=== PATIENT | male | born 1940 | race Caucasian/White ===

== ENCOUNTER 2018-02-24 11:09 | Observation (INO) | payer MEDICARE, BC ==
[2018-02-24] MEDS ORDERED: ASPIRIN 81 MG PO STA (11:47)
[2018-02-24] MEDS ORDERED: NITROGLYCERIN OINT 1 INCH/GM PACKET TOPICAL STA (11:47)
--- NOTE | 2018-02-24 12:01 | ED ---
General Adult HPI - General Chief complaint: Chest Pain Stated complaint: chest pain Time Seen by Provider: 02/24/18 11:15 Source: patient, RN notes reviewed Mode of arrival: wheelchair Limitations: no limitations - History of Present Illness Initial comments: Is a 77-year-old male with a past medical history significant for 2 MIs. Patient also has a history of hypertension high cholesterol. Patient comes in today because he started having chest pain on the right side of his chest yesterday she described as sharp in nature and also he has associated shortness of breath. Patient states been intermittent since yesterday and again occurred this morning and still concerning psychiatric emergency department. Patient denies any radiation of the pain. Patient denies any diaphoretic episodes. Patient denies any nausea. Patient states he's had no recent fever chills or cough per patient denies any headache patient denies numbness weakness. Patient denies any lightheadedness dizziness or near syncopal episode. Patient denies any vomiting or diarrhea. Patient states currently the pain is still there but it's only there a little bit. Patient states taking a deep breath does seem to make it worse or other times it does not. Patient denies exerting himself he doesn't know if exertion is made worse. - Related Data Home Medications Medication Instructions Recorded Confirmed Allopurinol [Zyloprim] 300 mg PO DAILY 01/29/15 02/24/18 Aspirin 325 mg PO DAILY 01/29/15 02/24/18 Atorvastatin [Lipitor] 40 mg PO HS 01/29/1518 Lisinopril [Zestril] 20 mg PO DAILY 01/29/15 02/24/18 Metoprolol Tartrate [Lopressor] 25 mg PO BID 01/29/15 02/24/18 Timolol [Betimol 0.5% Ophth Soln] 1 drop BOTH EYES DAILY 01/29/15 02/24/18 amLODIPine [Norvasc] 5 mg PO DAILY 01/29/15 02/24/18 Allergies Allergy/AdvReac Type Severity Reaction Status Date / Time No Known Allergies Allergy Verified 02/24/18 13:18 Review of Systems ROS Statement: Those systems with pertinent positive or pertinent negative responses have been documented in the HPI. ROS Other: All systems not noted in ROS Statement are negative. Past Medical History Past Medical History: Coronary Artery Disease (CAD), Hyperlipidemia, Hypertension, Myocardial Infarction ([place]) Additional Past Medical History / Comment(s): mi x2 History of Any Multi-Drug Resistant Organisms: None Reported Past Surgical History: Heart Catheterization, Heart Catheterization With Stent, Orthopedic Surgery Past Psychological History: No Psychological Hx Reported Smoking Status: Former smoker Past Alcohol Use History: Rare Past Drug Use History: None Reported General Exam - General Exam Comments Initial Comments: GENERAL: Patient is well-developed and well-nourished. Patient is nontoxic and well- hydrated and is in mild distress. ENT: Neck is soft and supple. No significant lymphadenopathy is noted. Oropharynx is clear. Moist mucous membranes. Neck has full range of motion without eliciting any pain. EYES: The sclera were anicteric and conjunctiva were pink and moist. Extraocular movements were intact and pupils were equal round and reactive to light. Eyelids were unremarkable. PULMONARY: Unlabored respirations. Good breath sounds bilaterally. No audible rales rhonchi or wheezing was noted. CARDIOVASCULAR: There is a regular rate and rhythm without any murmurs gallops or rubs. ABDOMEN: Soft and nontender with normal bowel sounds. No palpable organomegaly was noted. There is no palpable pulsatile mass. SKIN: Skin is clear with no lesions or rashes and otherwise unremarkable. NEUROLOGIC: Patient is alert and oriented x3. Cranial nerves II through XII are grossly intact. Motor and sensory are also intact. Normal speech, volume and content. Symmetrical smile. MUSCULOSKELETAL: Normal extremities with adequate strength and full range of motion. No lower extremity swelling or edema. No calf tenderness. LYMPHATICS: No significant lymphadenopathy is noted PSYCHIATRIC: Normal psychiatric evaluation. Limitations: no limitations Course Vital Signs 02/24/18 02/24/18 11:17 12:08 Temperature 98.1 F Pulse Rate 63 63 Respiratory 20 18 Rate Blood Pressure 164/66 130/63 O2 Sat by Pulse 98 96 Oximetry Medical Decision Making - Medical Decision Making EKG shows sinus rhythm with a first-degree AV block at 62 bpm VA interval 212 QRS is 98 QT interval 432 QTC is 438. Patient's EKG shows no ST segment elevation or depression or T wave abnormalities are noted. Chest x-ray shows no acute abnormality. D-dimer was elevated so I ordered a CAT scan of the chest. CT of the chest showed no PE. Because the patient was having atypical chest pain I consider this to be unstable angina started the patient on heparin I admitted the patient I spoke with Dr. Ledesma and a consult cardiology. I continue the heparin aspirin Nitropaste on the floor. - Lab Data Result diagrams: 02/24/18 11:54 02/24/18 11:54 Lab Results 02/24/18 02/24/18 02/24/18 Range/Units 11:54 11:54 11:54 WBC 4.4 (3.8-10.6) k/uL RBC 4.21 L (4.30-5.90) m/uL Hgb 13.2 (13.0-17.5) gm/dL Hct 40.6 (39.0-53.0) % MCV 96.3 (80.0-100.0) fL MCH 31.4 (25.0-35.0) pg MCHC 32.6 (31.0-37.0) g/dL RDW 13.3 (11.5-15.5) % Plt Count 160 (150-450) k/uL Neutrophils % 77 % Lymphocytes % 9 % Monocytes % 9 % Eosinophils % 1 % Basophils % 0 % Neutrophils # 3.4 (1.3-7.7) k/uL Lymphocytes # 0.4 L (1.0-4.8) k/uL Monocytes # 0.4 (0-1.0) k/uL Eosinophils # 0.1 (0-0.7) k/uL Basophils # 0.0 (0-0.2) k/uL PT (9.0-12.0) sec INR (<1.2) APTT (22.0-30.0) sec D-Dimer (<0.60) mg/L FEU Sodium 140 (137-145) mmol/L Potassium 4.1 (3.5-5.1) mmol/L Chloride 107 (98-107) mmol/L Carbon Dioxide 24 (22-30) mmol/L Anion Gap 9 mmol/L BUN 24 H (9-20) mg/dL Creatinine 0.79 (0.66-1.25) mg/dL Est GFR (CKD-EPI)AfAm >90 (>60 ml/min/1.73 sqM) Est GFR (CKD-EPI)NonAf 86 (>60 ml/min/1.73 sqM) Glucose 94 (74-99) mg/dL Calcium 8.8 (8.4-10.2) mg/dL Magnesium 2.1 (1.6-2.3) mg/dL Total Bilirubin 0.8 (0.2-1.3) mg/dL AST 25 (17-59) U/L ALT 23 (21-72) U/L Alkaline Phosphatase 57 (38-126) U/L Total Creatine Kinase 112 (55-170) U/L CK-MB (CK-2) 3.2 H (0.0-2.4) ng/mL CK-MB (CK-2) Rel Index 2.9 Troponin I <0.012 (0.000-0.034) ng/mL NT-Pro-B Natriuret Pep pg/mL Total Protein 6.1 L (6.3-8.2) g/dL Albumin 3.5 (3.5-5.0) g/dL 02/24/18 02/24/18 Range/Units 11:54 11:54 WBC (3.8-10.6) k/uL RBC (4.30-5.90) m/uL Hgb (13.0-17.5) gm/dL Hct (39.0-53.0) % MCV (80.0-100.0) fL MCH (25.0-35.0) pg MCHC (31.0-37.0) g/dL RDW (11.5-15.5) % Plt Count (150-450) k/uL Neutrophils % % Lymphocytes % % Monocytes % % Eosinophils % % Basophils % % Neutrophils # (1.3-7.7) k/uL Lymphocytes # (1.0-4.8) k/uL Monocytes # (0-1.0) k/uL Eosinophils # (0-0.7) k/uL Basophils # (0-0.2) k/uL PT 11.0 (9.0-12.0) sec INR 1.0 (<1.2) APTT 25.9 (22.0-30.0) sec D-Dimer 1.19 H (<0.60) mg/L FEU Sodium (137-145) mmol/L Potassium (3.5-5.1) mmol/L Chloride (98-107) mmol/L Carbon Dioxide (22-30) mmol/L Anion Gap mmol/L BUN (9-20) mg/dL Creatinine (0.66-1.25) mg/dL Est GFR (CKD-EPI)AfAm (>60 ml/min/1.73 sqM) Est GFR (CKD-EPI)NonAf (>60 ml/min/1.73 sqM) Glucose (74-99) mg/dL Calcium (8.4-10.2) mg/dL Magnesium (1.6-2.3) mg/dL Total Bilirubin (0.2-1.3) mg/dL AST (17-59) U/L ALT (21-72) U/L Alkaline Phosphatase (38-126) U/L Total Creatine Kinase (55-170) U/L CK-MB (CK-2) (0.0-2.4) ng/mL CK-MB (CK-2) Rel Index Troponin I (0.000-0.034) ng/mL NT-Pro-B Natriuret Pep 614 pg/mL Total Protein (6.3-8.2) g/dL Albumin (3.5-5.0) g/dL Critical Care Time Critical Care Time: Yes Total Critical Care Time: 35 Disposition Clinical Impression: Unstable angina pectoris Disposition: ADMITTED IP TO THIS [facility] Referrals: Nonstaff,Physician [Primary Care Provider] - 1-2 days Time of Disposition: 14:35
[2018-02-24 12:15] LABS: Basophils % (A) 0 %; Eosinophils # (A) 0.1 k/uL (0-0.7); Eosinophils % (A) 1 %; HCT 40.6 % (39.0-53.0); HGB 13.2 gm/dL (13.0-17.5); Lymphocytes # (A) 0.4 k/uL (1.0-4.8); Lymphocytes % (A) 9 %; MCH 31.4 pg (25.0-35.0); MCHC 32.6 g/dL (31.0-37.0); MCV 96.3 fL (80.0-100.0); Mean Platelet Volume 7.5; Monocytes # (A) 0.4 k/uL (0-1.0); Monocytes % (A) 9 %; Neutrophils # (A) 3.4 k/uL (1.3-7.7); Neutrophils % (A) 77 %; Platelet Count 160 k/uL (150-450); RBC 4.21 m/uL (4.30-5.90); RDW 13.3 % (11.5-15.5); WBC 4.4 k/uL (3.8-10.6)
[2018-02-24 12:25] LABS: ALT 23 U/L (21-72); AST 25 U/L (17-59); Albumin 3.5 g/dL (3.5-5.0); Alkaline Phosphatase 57 U/L (38-126); Anion Gap 9 mmol/L; Blood Urea Nitrogen 24 mg/dL (9-20); Calcium 8.8 mg/dL (8.4-10.2); Carbon Dioxide 24 mmol/L (22-30); Chloride 107 mmol/L (98-107); Glucose 94 mg/dL (74-99); Magnesium 2.1 mg/dL (1.6-2.3); Potassium 4.1 mmol/L (3.5-5.1); Sodium 140 mmol/L (137-145); Total Bilirubin 0.8 mg/dL (0.2-1.3); Total Protein 6.1 g/dL (6.3-8.2)
--- NOTE | 2018-02-24 12:25 | XR ---
EXAMINATION TYPE: XR chest 2V DATE OF EXAM: 02/24/2018 COMPARISON: None INDICATION: History of 2 heart attacks right-sided chest pain TECHNIQUE: Frontal and lateral views of the chest are obtained. FINDINGS: The heart size is normal. The pulmonary vasculature is upper limits of normal.. There may be some mild increased central lung markings. Minimal bilateral pleural effusions are prese nt. Mild emphysematous changes may be present.. IMPRESSION: 1. Small bilateral pleural effusions. 2. Emphysematous type changes. 3. Consider volume overload within the differential.
[2018-02-24 12:29] LABS: Partial Thromboplastin Time 25.9 sec (22.0-30.0)
[2018-02-24 12:44] LABS: Creatine Kinase 112 U/L (55-170)
[2018-02-24 12:56] LABS: Creatine Kinase MB 3.2 ng/mL (0.0-2.4); Troponin I <0.012 ng/mL (0.000-0.034)
[2018-02-24 13:04] LABS: D-Dimer 1.19 mg/L FEU (<0.60)
--- NOTE | 2018-02-24 14:31 | CT ---
CT CHEST FOR PULMONARY EMBOLISM. EXAMINATION TYPE: CT chest angio for PE DATE OF EXAM: 02/24/2018 INDICATION: Chest pain CT DLP: 270.1 mGycm, Automated exposure control for dose reduction was used. CONTRAST: Patient injected with 100 ml mL of Isovue 370. COMPARISON: None TECHNIQUE: CT of the chest is performed on a spiral scan at 2 mm thick sections. Study is performed with intravenous contrast timed for evaluation for pulmonary embolism. This will limit additional po rtions of the evaluation. 3-D MIP images reconstructed by the technologist are reviewed on the compu ter in the coronal and sagittal planes. FINDINGS: No persistent filling defects are evident to suggest an acute pulmonary embolism. Small bilateral pleural effusions are present. No mediastinal or hilar adenopathy enlarged by CT criteria is evident. Small shotty lymph nodes are present. The ascending aorta diameter at the level of the main pulmonary artery is 3.1 cm. The main pulmonary artery diameter at the bifurcation is 2.3 cm. Emphysematous changes are present bilaterally. There is a 0.5 cm nodular density within the periphery of the right mid lung adjacent to the major fissure. Limited CT section through the upper abdomen are unremarkable. IMPRESSIONS: 1. No acute pulmonary embolism. 2. Emphysematous changes. 3. 0.5 cm nodular density peripherally right midlung. Follow-up monitoring for stability is recommend ed. 4. Small bilateral pleural effusions.
[2018-02-24] MEDS ORDERED: NITROGLYCERIN SL TABS 0.4 MG TAB SUBLINGUAL PRN (14:36)
[2018-02-24] MEDS ORDERED: MORPHINE SULFATE 4 MG/ML SYRINGE IV PRN (15:31)
[2018-02-24] MEDS ORDERED: NALOXONE 0.4 MG/ML 1 ML VIAL IV PRN (15:31)
[2018-02-24] MEDS ORDERED: HYDROcodone/APAP 5-325MG 1 EACH TAB PO PRN (15:31)
[2018-02-24] MEDS ORDERED: ACETAMINOPHEN TAB 325 MG TAB PO PRN (15:31)
[2018-02-24] MEDS ORDERED: MORPHINE SULFATE 2 MG/ML SYRINGE IV PRN (15:37)
--- NOTE | 2018-02-24 16:11 | P.HPIM ---
History of Present Illness H&P Date: 02/24/18 Chief Complaint: chest pain 77-year-old male with PMH of hypertension, hyperlipidemia, previous ID 2, gout presents the ED for chest pain. Patient states he woke up yesterday morning with chest pain that lasted 3-4 hours. Chest pain resolved on its own. C hest is associated with shortness of breath. Patient describes chest pain is right-sided, 8 out of 10 in severity. He is unable to describe it effectively. Pain is nonradiating. Pain has no alleviating factors. Pain is aggravated with deep inspiration. 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 Lobo. Patient states that this chest pain is completely different than the one he experienced during his myocardial infarctions. This morning, he woke up a similar pain, prompting him to go to the ED. He denies any headaches, lower extremity edema, nausea, vomiting, fever, cough, palpitations, changes in urination or bowel habits. No changes in appetite or weight. Patient is admitted for chest pain, rule out acute coronary syndrome. Cardiology on consult. Past Medical History Past Medical History: Coronary Artery Disease (CAD), Hyperlipidemia, Hypertension, Myocardial Infarction (ID) Additional Past Medical History / Comment(s): mi x2 History of Any Multi-Drug Resistant Organisms: None Reported Past Surgical History: Heart Catheterization, Heart Catheterization With Stent, Orthopedic Surgery Past Psychological History: No Psychological Hx Reported Smoking Status: Former smoker Past Alcohol Use History: Rare Past Drug Use History: None Reported Medications and Allergies Home Medications Medication Instructions Recorded Confirmed Type Allopurinol [Zyloprim] 300 mg PO DAILY 01/29/15 02/24/18 History Aspirin 325 mg PO DAILY 01/29/15 02/24/18 History Atorvastatin [Lipitor] 40 mg PO HS 01/29/15 02/24/18 History Lisinopril [Zestril] 20 mg PO DAILY 01/29/15 02/24/18 History Metoprolol Tartrate [Lopressor] 25 mg PO BID 01/29/15 02/24/18 History Timolol [Betimol 0.5% Ophth Soln] 1 drop BOTH EYES DAILY 01/29/15 02/24/18 History amLODIPine [Norvasc] 5 mg PO DAILY 01/29/15 02/24/18 History Allergies Allergy/AdvReac Type Severity Reaction Status Date / Time No Known Allergies Allergy Verified 02/24/18 13:18 Physical Exam Vitals: Vital Signs Temp Pulse Resp BP Pulse Ox 02/24/18 15:15 58 L 18 126/62 97 02/24/18 12:08 63 18 130/63 96 02/24/18 11:17 98.1 F 63 20 164/66 98 Intake and Output 02/24/18 02/24/18 02/24/18 06:59 14:59 22:59 Other: Weight 78.018 kg General: [non toxic], [no distress], [appears at stated age] Derm: [warm], [dry] Head: [atraumatic], [normocephalic], [symmetric] Eyes: [EOMI], [no lid lag], [anicteric sclera] Mouth: [no lip lesion], [mucus membranes moist] Cardiovascular: [S1S2 reg], [no murmur], [positive DP pulse bilateral] Lungs: [CTA bilateral], [no rhonchi, no rales] , [no accessory muscle use] Abdominal: [soft], [ nontender to palpation], [no guarding], [no appreciable organomegaly] Ext: [no gross muscle atrophy], [no edema], [no contractures] Neuro: [ CN II-XI grossly intact], [no focal neuro deficits] Psych: [Alert], [oriented], [appropriate affect] Results CBC & Chem 7: 02/24/18 11:54 02/24/18 11:54 Labs: Abnormal Lab Results - Last 24 Hours (Table) 02/24/18 02/24/18 02/24/18 Range/Units 11:54 11:54 11:54 RBC 4.21 L (4.30-5.90) m/uL Lymphocytes # 0.4 L (1.0-4.8) k/uL D-Dimer (<0.60) mg/L FEU BUN 24 H (9-20) mg/dL CK-MB (CK-2) 3.2 H (0.0-2.4) ng/mL Total Protein 6.1 L (6.3-8.2) g/dL 02/24/18 Range/Units 11:54 RBC (4.30-5.90) m/uL Lymphocytes # (1.0-4.8) k/uL D-Dimer 1.19 H (<0.60) mg/L FEU BUN (9-20) mg/dL CK-MB (CK-2) (0.0-2.4) ng/mL Total Protein (6.3-8.2) g/dL Thrombosis Risk Factor Assmnt - Choose All That Apply Any of the Below Risk Factors Present?: No Other Risk Factors: No Each Risk Factor Represents 3 Points: Age 75 years or older Thrombosis Risk Factor Assessment Total Risk Factor Score: 3 Thrombosis Risk Factor Assessment Level: Very Low Risk Assessment and Plan Assessment: Assessment and Plan 1. Chest pain: Likely non cardiac but with risk factors, rule out ACS. Trop < 0.012 x 1, EKG showing NSR with 1st degree AV block. CXR shows small pleural effusions and emphysema. D-Dimer 1.19, CTA rule out PE. Pain management with Tylenol, Verner, Nitrostat and Morphine IV PRN. Telemetry monitoring. Trend 2 Trop/EKG to r/o ACS. HEART healthy diet. FU Echocardiogram, Lipid panel, Cardiology 2. CAD: Stable. s/p 2 ROMY in 1994 and 1998. Continue ASA 325 mg PO QD and Lipitor 40 mg PO QHS. Continue Metoprolol 25 mg PO BID. FU Cardiology. 3. Hypertension: BP 126/62. Continue Metoprolol. Continue Lisinopril 20 mg PO QD , Amlodipine 5 mg PO QD. 4. Probable COPD: DuoNeb QID PRN for SOB/wheezing. O2 per NC to maintain O2 sat > 92%. outPT PFTs and Pulmonology appointment. 5. DVT/GI Prophylaxis: Heparin 5000 units TID. Patient is admitted for chest pain rule out acute coronary syndrome. Cardiology on consult.
[2018-02-24 18:12] LABS: Creatine Kinase 88 U/L (55-170)
[2018-02-24 18:25] LABS: Creatine Kinase MB 2.4 ng/mL (0.0-2.4); Troponin I <0.012 ng/mL (0.000-0.034)
[2018-02-24] MEDS: HEPARIN SODIUM,PORCINE 5,000 UNIT/ML 1 ML VIAL SQ SCH (20:20)
[2018-02-24] MEDS: METOPROLOL TARTRATE 25 MG TAB PO SCH (20:20)
[2018-02-24] MEDS ORDERED: ATORVASTATIN 40 MG TAB PO SCH (21:00)
[2018-02-24] MEDS: NITROGLYCERIN OINT 1 INCH/GM PACKET TOPICAL SCH (22:43)
[2018-02-25 01:35] LABS: Creatine Kinase 67 U/L (55-170)
[2018-02-25 01:48] LABS: Creatine Kinase MB 1.8 ng/mL (0.0-2.4); Troponin I <0.012 ng/mL (0.000-0.034)
[2018-02-25] MEDS: NITROGLYCERIN OINT 1 INCH/GM PACKET TOPICAL SCH ×2 (04:36→11:13)
[2018-02-25 05:39] VITALS: TEMP 98.2
--- NOTE | 2018-02-25 07:19 | CONS ---
CONSULTATION Mr. Christensen is a 77-year-old male with known history of coronary artery disease, status post percutaneous revascularization done by Dr. Zahraa Lobo, most recently in 2006, prior history of myocardial infarction in 1994 and 1998 who presented with right-sided chest discomfort. The discomfort is respirophasic in pattern. On Wednesday, he moved his [place] tree and woke up on Wednesday morning as well as morning with chest discomfort. The discomfort is right-sided, respirophasic and positional, not associated with any dyspnea, dizziness or palpitation. He has no PND, orthopnea, or peripheral edema. He has been reasonably active physically without exertional chest discomfort. He has no recent exacerbation of his ischemic heart disease nor history of heart failure. His coronary risk factors are remarkable for remote history of smoking which he stopped many years ago. He has a history of hypertension, hyperlipidemia. He is nondiabetic. MEDICATIONS: Include aspirin once a day, Lipitor 40 mg daily, amlodipine 5 mg daily, Zestril 20 mg daily, metoprolol tartrate 25 mg twice a day, Zyloprim and timolol. REVIEW OF SYSTEMS: RESPIRATORY SYSTEM: He has no recent wheezing or cough. No history of documented asthma. He was told he has early emphysema. GI SYSTEM: No recent GI bleeding. No peptic ulcer disease SYSTEM: No dysuria or hematuria. NERVOUS SYSTEM: No stroke or seizure. PHYSICAL EXAMINATION: He is a 77-year-old male, alert, oriented, in no apparent distress. Blood pressure running between the 130s to 150s with a heart rate in the 60s. HEAD: Normocephalic. EYES: Sclerae nonicteric. NECK: Good upstroke, no bruit, no venous distention. LUNGS: Clear to auscultation. HEART: Regular rate and rhythm, S1, S2. No S3. No S4 with a soft systolic murmur at the base, ejection type. ABDOMEN: Soft, nontender. EXTREMITIES: No edema. Chest wall with reproducible chest pain on the right side. LAB DATA: Revealed D-dimer of 1.1. Troponin of less than 0.012, BUN and creatinine of 24 and 0.79. Hemoglobin of 13.2. Potassium 4.1. EKG revealed a sinus mechanism with no acute ST-segment changes and a first-degree AV block. CT angiogram of the chest shows no evidence of pulmonary embolism. IMPRESSION: 1. Chest discomfort atypical for ischemic heart disease, musculoskeletal in etiology. 2. History of coronary artery disease, appears to be stable. 3. History of hypertension. 4. History of hyperlipidemia. RECOMMENDATION: I will review the results of his most recent stress test that was done in the office. He will undergo an echocardiogram. Will increase his level of activity. If he is stable, I would expect he should be able to be discharged home today and follow as an outpatient with Dr. Zahraa Lobo. Thank you for this consult. Will follow with you. MMODL / IJN: [id number] /
[2018-02-25 07:30] LABS: Anion Gap 7 mmol/L; Blood Urea Nitrogen 20 mg/dL (9-20); Calcium 8.7 mg/dL (8.4-10.2); Carbon Dioxide 26 mmol/L (22-30); Chloride 106 mmol/L (98-107); Cholesterol 111 mg/dL (<200); Glucose 94 mg/dL (74-99); HDL Cholesterol 33 mg/dL (40-60); LDL Cholesterol,Calculated 62 mg/dL (0-99); Potassium 4.4 mmol/L (3.5-5.1); Sodium 139 mmol/L (137-145); Triglycerides 80 mg/dL (<150)
[2018-02-25 08:33] VITALS: BP 174/73; PULSE 62; RESP 19
[2018-02-25] MEDS: METOPROLOL TARTRATE 25 MG TAB PO SCH (08:53)
[2018-02-25] MEDS: HEPARIN SODIUM,PORCINE 5,000 UNIT/ML 1 ML VIAL SQ SCH (08:53)
[2018-02-25] MEDS ORDERED: ASPIRIN 81 MG PO SCH (09:00)
[2018-02-25] MEDS ORDERED: TIMOLOL 0.5% OPHTH DROPS 5 ML BTL BOTH EYES SCH (09:00)
[2018-02-25] MEDS ORDERED: ALLOPURINOL 300 MG TAB PO SCH (09:00)
[2018-02-25] MEDS ORDERED: ASPIRIN 325 MG TAB PO SCH (09:00)
[2018-02-25] MEDS ORDERED: LISINOPRIL 20 MG TAB PO SCH (09:00)
[2018-02-25] MEDS ORDERED: amLODIPine 5 MG TAB PO SCH (09:00)
--- NOTE | 2018-02-25 11:00 | P.DS ---
Providers Date of admission: 02/24/18 14:44 Expected date of discharge: 02/25/18 Attending physician: Deacon Hicks MD Consults: 02/24/18 14:36 Consult Physician Urgent Consulting Provider: [facility] Consult Reason/Comments: Unstable angina Do you want consulting provider notified?: Yes Primary care physician: Physician Nonstaff - Discharge Diagnosis(es) (1) Chest pain Current Visit: Yes Status: Acute (2) CAD (coronary artery disease) Current Visit: Yes Status: Acute (3) Hypertension Current Visit: Yes Status: Acute (4) COPD (chronic obstructive pulmonary disease) Current Visit: Yes Status: Acute Hospital Course: 77-year-old male with PMH of hypertension, hyperlipidemia, previous [place] 2, gout presents the ED for chest pain. Patient states he woke up yesterday morning with chest pain that lasted 3-4 hours. Chest pain resolved on its own. Chest is associated with shortness of breath. Patient describes chest pain is right-sided, 8 out of 10 in severity. He is unable to describe it effectively. Pain is nonradiating. Pain has no alleviating factors. Pain is aggravated with deep inspiration. 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 Lobo. Patient states that this chest pain is completely different than the one he experienced during his myocardial infarctions. This morning, he woke up a similar pain, prompting him to go to the ED. He denies any headaches, lower extremity edema, nausea, vomiting, fever, cough, palpitations, changes in urination or bowel habits. No changes in appetite or weight. Patient is admitted for chest pain, rule out acute coronary syndrome. Initial troponins were less than 0.0123 with EKG showing normal sinus rhythm and first-degree AV block. Chest x-ray showed small pleural effusions and emphysema. D-dimer was initially 1.19, CTA of the chest ruled out PE. Pain especially Tylenol, nitro, [place] and morphine IV as needed. Apparently, there was a recent stress test that was done at Dr. Lobo's clinic that was negative. Cardiology was consulted recommended discharge with outpatient follow-up with Dr. Lobo. Patient was advised to follow-up with his primary care provider within 1-2 days of discharge. Patient was advised follow-up with Dr. Lobo within 1 week of discharge. Patient seen and examined prior to discharge. No acute events overnight. Patient is looking for to going home. He denies any chest pain, shortness of breath or palpitations. As per RN, patient has been cleared by Cardiology from their perspective. General: [non toxic], [no distress], [appears at stated age] Derm: [warm], [dry] Head: [atraumatic], [normocephalic], [symmetric] Eyes: [EOMI], [no lid lag], [anicteric sclera] Mouth: [no lip lesion], [mucus membranes moist] Cardiovascular: [S1S2 reg], [no murmur], [positive DP pulse bilateral] Lungs: [CTA bilateral], [no rhonchi, no rales] , [no accessory muscle use] Abdominal: [soft], [ nontender to palpation], [no guarding], [no appreciable organomegaly] Ext: [no gross muscle atrophy], [no edema], [no contractures] Neuro: [no focal neuro deficits] Psych: [Alert], [oriented], [appropriate affect] Assessment and Plan 1. Chest pain: Likely non cardiac but with risk factors, rule out ACS. Trop < 0.012 x 3, EKG showing NSR with 1st degree AV block. CXR shows small pleural effusions and emphysema. D-Dimer 1.19, CTA rule out PE. Pain management with Tylenol, [place], Nitrostat and Morphine IV PRN. Telemetry monitoring. HEART healthy diet. Lipid panel is within normal limits. FU Echocardiogram, Cardiology 2. CAD: Stable. s/p 2 ROMY in 1994 and 1998. Continue ASA 325 mg PO QD and Lipitor 40 mg PO QHS. Continue Metoprolol 25 mg PO BID. FU Cardiology. 3. Hypertension: BP 174/73. Continue Metoprolol. Continue Lisinopril 20 mg PO QD , Amlodipine 5 mg PO QD. 4. Probable COPD: DuoNeb QID PRN for SOB/wheezing. O2 per NC to maintain O2 sat > 92%. outPT PFTs and Pulmonology appointment. 5. DVT/GI Prophylaxis: Heparin 5000 units TID. Pertinent Studies: chest x-ray CTA chest Echocardiogram Patient Condition at Discharge: Stable Plan - Discharge Summary Discharge Rx Participant: No New Discharge Prescriptions: Continue Lisinopril [Zestril] 20 mg PO DAILY Atorvastatin [Lipitor] 40 mg PO HS Allopurinol [Zyloprim] 300 mg PO DAILY amLODIPine [Norvasc] 5 mg PO DAILY Metoprolol Tartrate [Lopressor] 25 mg PO BID Aspirin 325 mg PO DAILY Timolol [Betimol 0.5% Ophth Soln] 1 drop BOTH EYES DAILY Discharge Medication List Allopurinol [Zyloprim] 300 mg PO DAILY 01/29/15 [History] Aspirin 325 mg PO DAILY 01/29/15 [History] Atorvastatin [Lipitor] 40 mg PO HS 01/29/15 [History] Lisinopril [Zestril] 20 mg PO DAILY 01/29/15 [History] Metoprolol Tartrate [Lopressor] 25 mg PO BID 01/29/15 [History] Timolol [Betimol 0.5% Ophth Soln] 1 drop BOTH EYES DAILY 01/29/15 [History] amLODIPine [Norvasc] 5 mg PO DAILY 01/29/15 [History] Follow up Appointment(s)/Referral(s): Nereyda Lobo MD [STAFF PHYSICIAN] - 03/28/18 1:15 pm Nonstaff,Physician [Primary Care Provider] - 1-2 days Jr Lopez MD [STAFF PHYSICIAN] - 1 Week Patient Instructions/Handouts: Chest Pain (DC) Activity/Diet/Wound Care/Special Instructions: Diet: HEART healthy Please take all medications as advised. Please follow-up with her primary care provider within 1-2 days of discharge. Please follow-up with cardiology Dr. Lobo within 1-2 days discharge. please follow-up with pulmonology Dr. Lopez within 1 week of discharge. Discharge Disposition: HOME SELF-CARE
--- NOTE | 2018-02-25 12:01 | ECHOF ---
Referral Reason:Chest pain MEASUREMENTS -------- HEIGHT: 175.3 cm WEIGHT: 78.0 kg BP: 156/71 RVIDd: 2.5 cm (< 3.3) IVSd: 1.3 cm (0.6 - 1.1) LVIDd: 4.8 cm (3.9 - 5.3) LVPWd: 1.3 cm (0.6 - 1.1) IVSs: 1.5 cm LVIDs: 3.6 cm LVPWs: 1.6 cm LA Diam: 4.1 cm (2.7 - 3.8) LAESV Index (A-L): 23.54 ml/m Ao Diam: 2.9 cm (2.0 - 3.7) AV Cusp: 1.7 cm (1.5 - 2.6) LA Diam: 4.1 cm (2.7 - 3.8) MV EXCURSION: 23.948 mm (> 18.000) MV EF SLOPE: 103 mm/s (70 - 150) EPSS: 0.3 cm MV E Samson: 0.87 m/s MV DecT: 171 ms MV A Samson: 1.11 m/s MV E/A Ratio: 0.78 RAP: 5.00 mmHg RVSP: 42.74 mmHg FINDINGS -------- Sinus rhythm. This was a technically adequate study. The left ventricular size is normal. There is mild concentric left ventricular hypertrophy. Overa ll left ventricular systolic function is normal with, an EF between 55 - 60 %. The right ventricle is normal in size. Normal LA size by volume 22+/-6 ml/m2. The right atrial size is normal. There is mild aortic valve sclerosis. The mitral valve leaflets are mildly thickened. Mild mitral regurgitation is present. Mild tricuspid regurgitation present. There is mild pulmonary hypertension. The right ventricular systolic pressure, as measured by Doppler, is 42.74mmHg. Trace/mild (physiologic) pulmonic regurgitation. The aortic root size is normal. There is no pericardial effusion. CONCLUSIONS -------- 1. Sinus rhythm. 2. This was a technically adequate study. 3. The left ventricular size is normal. 4. There is mild concentric left ventricular hypertrophy. 5. Overall left ventricular systolic function is normal with, an EF between 55 - 60 %. 6. Normal LA size by volume 22+/-6 ml/m2. 7. There is mild aortic valve sclerosis. 8. The mitral valve leaflets are mildly thickened. 9. Mild mitral regurgitation is present. 10. Mild tricuspid regurgitation present. 11. There is mild pulmonary hypertension. 12. Trace/mild (physiologic) pulmonic regurgitation. 13. The aortic root size is normal. 14. There is no pericardial effusion. DIAMOND SORTER: Theodora Barrios RDCS
== END 2018-02-25 12:36 | disposition home or self-care (01) ==
LOC: EC 11:09 → 1SOBS 14:44
PROVIDERS: ADMIT Family Medicine; ATTEND Family Medicine
DX: R07.89 Other chest pain (principal); I25.10 Atherosclerotic heart disease of native coronary artery without angina pectoris; R79.89 Other specified abnormal findings of blood chemistry; I10 Essential (primary) hypertension; J43.9 Emphysema, unspecified; M10.9 Gout, unspecified; J90 Pleural effusion, not elsewhere classified; I44.0 Atrioventricular block, first degree; E78.5 Hyperlipidemia, unspecified; Z79.82 Long term (current) use of aspirin; Z79.899 Other long term (current) drug therapy; I25.2 Old myocardial infarction; Z95.5 Presence of coronary angioplasty implant and graft; Z87.891 Personal history of nicotine dependence
CPT/HCPCS: 96372; 99291; 36415; 93005; 93306; 85379; 83880; 80061; 80053; 80048; 82550 ×2; 82553 ×2; 83735; 84484 ×2; 85025; 85610; 85730; 71046; 71275; G0378 ×2; J1644; Q9967

== ENCOUNTER → 2018-11-29 | Outpatient (CLI) | payer MEDICARE, BC ==
[2018-11-29 11:34] LABS: African American GFR (CKD) >90 (>60 ml/min/1.73 sqM); Blood Urea Nitrogen 24 mg/dL (9-20)
--- NOTE | 2018-11-29 14:13 | CT ---
EXAMINATION TYPE: CT chest w con DATE OF EXAM: 11/29/2018 COMPARISON: 02/24/2018 HISTORY: 78-year-old male Lung nodule TECHNIQUE: Contiguous axial scanning of the chest after the administration of 100 ml mL of Isovue 300 . Coronal/sagittal reconstructions performed. CT DLP: 449mGycm. Automatic exposure control utilized for a dose reduction. FINDINGS: Heart normal size with trace anterior pericardial fluid. Extensive coronary vessel calcifications are present. Aorta normal caliber with conventional arch vessel branching anatomy. Right hilar lymph node measures 1.1 cm, unchanged. Right infrahilar slight bronchial lymph node measu res 8 mm versus 1.3 cm, previously. Moderate to advanced centrilobular emphysema with mild diffuse bronchial wall thickening. Mild biapic al pleural-parenchymal scarring. 4 mm left mid lung pulmonary nodule along the major fissure is unchanged. Calcified granuloma right m idlung, axial image 24 is unchanged. 4 mm peripheral right mid to lower lobe pulmonary nodule, axial image 37 is unchanged. No consolidation or pleural effusion. Tiny hiatal hernia. Scattered calcified granulomas within the spleen. Moderate stool burden. Bones: Moderate degenerative disc disease throughout the thoracic spine. IMPRESSION: 1. COPD with moderate to advanced emphysema. 2. A few 5 mm and smaller pulmonary nodules are stable for 10 months suggesting a benign etiology. On e of these is calcified compatible with prior granulomatous disease. 3. Extensive 3 vessel CAD.
== END | disposition home or self-care (01) ==
LOC: RADCTMAIN 10:44
PROVIDERS: ATTEND Internal Medicine
DX: J43.9 Emphysema, unspecified (principal); R91.8 Other nonspecific abnormal finding of lung field; I25.10 Atherosclerotic heart disease of native coronary artery without angina pectoris
CPT/HCPCS: 82565; 84520; 71260; 36415; Q9967

== ENCOUNTER → 2019-09-19 | Outpatient (CLI) | payer MEDICARE, BC ==
[2019-09-19 09:00] LABS: African American GFR (CKD) >90 (>60 ml/min/1.73 sqM); Blood Urea Nitrogen 20 mg/dL (9-20); Non-African American GFR(CKD) >90 (>60 ml/min/1.73 sqM)
--- NOTE | 2019-09-19 10:33 | CT ---
EXAMINATION TYPE: CT chest w con DATE OF EXAM: 09/19/2019 COMPARISON: 11/29/2018 and 02/24/2018 HISTORY: 78-year-old male R91.1, Lung nodule TECHNIQUE: Contiguous axial scanning of the chest after the administration of 100 mL of Isovue 300. Coronal/sagittal reconstructions performed. CT DLP: 202.4mGycm. Automatic exposure control utilized for a dose reduction. FINDINGS: Heart normal size with trace anterior pericardial fluid measuring 4 mm thick. Three-vessel coronary a rtery calcifications are present. The aorta is normal caliber with mild arch calcifications and conventional arch vessel branching ines mann. No thoracic lymphadenopathy by CT size criteria. Some calcified right hilar lymph nodes compatible wi th prior granulomatous disease. Prominent right infrahilar lymph node measures up to 1 cm, probably r eactive. Moderate to advanced centrilobular emphysema. An elongated 8 x 3 mm pulmonary nodule right midlung, refer to coronal image 39 and axial image 36. T his was larger on 02/24/2018 and is unchanged from 2019. 3 mm posteromedial right lower lobe pulmonary nodule, axial image 43, unchanged. 3 mm calcified granuloma medial and posterior left midlung, axial image 32. Stable 5 mm calcified granuloma right midlung, axial image 23. Stable 5 mm left mid lung pulmonary nodule, axial image 30. Mild biapical pleural-parenchymal scarring. No consolidation or pleural effusion. Tiny hiatal hernia. Otherwise, visualized upper abdomen shows no gross abnormality. Bones: Moderate degenerative disc disease mid to lower thoracic spine. IMPRESSION: 1. Moderate to advanced COPD. CAD with extensive three-vessel coronary artery calcifications redemons trated. 2. Stable pulmonary nodules back to 02/24/2018 suggesting a benign etiology. No new suspicious nodule s are seen. 3. Tiny hiatal hernia.
== END | disposition home or self-care (01) ==
LOC: RADCTMAIN 08:00
PROVIDERS: ATTEND Internal Medicine
DX: J44.9 Chronic obstructive pulmonary disease, unspecified (principal); I25.10 Atherosclerotic heart disease of native coronary artery without angina pectoris; K44.9 Diaphragmatic hernia without obstruction or gangrene; R91.1 Solitary pulmonary nodule
CPT/HCPCS: 82565; 84520; 71260; 36415; Q9967

== ENCOUNTER → 2020-06-06 | Day surgery (SDC) | payer MEDICARE, BC ==
[2020-06-04 14:26] VITALS: BMI 24.3
[~2020-06-06] MED LIST: LACTATED RINGERS 1,000 ML IV SCH; LIDOCAINE 1% (10MG/ML) FOR IV START INTRADERMA ONE; LIDOCAINE 1% (10MG/ML) FOR IV START INTRADERMA PRN; PROPOFOL 10 MG/ML 20 ML VIAL IV ONE
[2020-06-06 09:05] VITALS: RESP 16; TEMP 97.2
--- NOTE | 2020-06-06 09:42 | P.GSHP ---
History of Present Illness H&P Date: 06/06/20 Chief Complaint: History of colon polyps This is a 79-year-old male presents today for colonoscopy. Patient has previous history of colonic polyps. Past Medical History Past Medical History: Coronary Artery Disease (CAD), COPD, GERD/Reflux, Hyperlipidemia, Hypertension, Myocardial Infarction ([place]), Osteoarthritis (OA), Pneumonia, Syncope Additional Past Medical History / Comment(s): mi x2, lt ear tinnitus, "touch of emphysema", chronic lt hip pain, diverticulosis, change in bowel habits, Last Myocardial Infarction Date:: 01-05-95 History of Any Multi-Drug Resistant Organisms: None Reported Past Surgical History: Adenoidectomy, Heart Catheterization, Heart Catheterization With Stent, Orthopedic Surgery, Tonsillectomy Additional Past Surgical History / Comment(s): regina cataracts removed, lt thumb sx to reconnect tendon. 4 heart caths mult sents Past Anesthesia/Blood Transfusion Reactions: No Reported Reaction Date of Last Stent Placement:: 01/08/2007 Smoking Status: Former smoker - Past Family History Father Family Medical History: CVA/TIA Mother Additional Family Medical History / Comment(s): of complications of post op infection after bowel sx Medications and Allergies Home Medications Medication Instructions Recorded Confirmed Type Atorvastatin [Lipitor] 40 mg PO DAILY 01/29/15 06/06/20 History Metoprolol Tartrate [Lopressor] 25 mg PO QAM 01/29/15 06/06/20 History Timolol [Betimol 0.5% Ophth Soln] 1 drop BOTH EYES DAILY 01/29/15 06/06/20 History allopurinoL [Zyloprim] 300 mg PO DAILY 01/29/15 06/06/20 History amLODIPine [Norvasc] 5 mg PO DAILY 01/29/15 06/06/20 History lisinopriL [Zestril] 20 mg PO DAILY 01/29/15 06/06/20 History Aspirin [Adult Low Dose Aspirin EC] 81 mg PO DAILY 06/04/20 06/06/20 History Cholecalciferol [Vitamin D3 (25 50 mcg PO DAILY 06/04/20 06/06/20 History Mcg = 1000 Iu)] Meloxicam [Mobic] 15 mg PO DAILY 06/04/20 06/06/20 History Allergies Allergy/AdvReac Type Severity Reaction Status Date / Time No Known Allergies Allergy Verified 06/06/20 09:21 Surgical - Exam Vital Signs Temp Pulse Resp BP Pulse Ox 97.2 F L 57 L 16 180/74 94 L 06/06/20 09:03 06/06/20 09:03 06/06/20 09:03 06/06/20 09:03 06/06/20 09:03 - General well developed, well nourished, no distress - Eyes PERRL - ENT normal pinna - Neck no masses - Respiratory normal expansion - Cardiovascular Rhythm: regular - Abdomen Abdomen: soft, non tender Assessment and Plan Assessment: History of Polyps. We'll perform colonoscopy.
--- NOTE | 2020-06-06 09:50 | P.OP ---
Date of Procedure: 06/06/20 Preoperative Diagnosis: History of colon polyps Postoperative Diagnosis: Diverticulosis Procedure(s) Performed: Colonoscopy Anesthesia: MAC Surgeon: David Kelley Pathology: none sent Condition: stable Disposition: PACU Description of Procedure: The patient's placed on the endoscopy table in the lateral position. He received IV sedation. Digital rectal exam was performed which revealed no abnormalities. The flexible colonoscope was then placed patient anus passed with colon. The colonoscope could not be advanced The left colon secondary to tortuous valve diverticulosis. Several times made to maneuver scope over this and possible. At this point scope withdrawn. There is extensive diverticular changes and sigmoid colon. The rectum appeared normal. Scope was withdrawn patient. He was scheduled for a barium enema
[2020-06-06 10:12] VITALS: BP 134/64; PULSE 53
--- NOTE | 2020-06-06 17:26 | XR ---
EXAMINATION TYPE: XR abdomen 1V DATE OF EXAM: 06/06/2020 COMPARISON: None INDICATION: Incomplete colonoscopy TECHNIQUE: Single view abdomen frontal projection FINDINGS: Is extensive bowel gas present throughout the colon as well as a fair amount of air within small evert l loops. Psoas margins are normal. No organomegaly is present. IMPRESSION: 1. Extensive bowel gas present from recent colonoscopy. Barium enema is deferred at this time.
--- NOTE | 2020-06-07 11:40 | FL ---
EXAMINATION TYPE: FL barium enema w air contrast DATE OF EXAM: 06/07/2020 COMPARISON: NONE HISTORY: Change in bowel habits. Incomplete colonoscopy. TECHNIQUE: Barium and air were instilled into the colon from the rectum to the cecum. Multiple spot and overhead images are obtained. FINDINGS: I do not see evidence for annular constricting lesion or fungating mass. No polypoid lesio ns are identified although retained debris does limit evaluation. Mucosal fold pattern has a normal appearance. Moderate sigmoid diverticulosis. No evidence for inflammatory bowel disease. Normal-tami earing appendix which is retrocecal. No significant diverticular disease. IMPRESSION: No polypoid lesions are identified although retained debris does limit evaluation. Moderate sigmoid d iverticulosis.
== END | disposition home or self-care (01) ==
LOC: ORWHC2ENDO 08:17
PROVIDERS: ATTEND Surgery
DX: Z12.11 Encounter for screening for malignant neoplasm of colon (principal); K57.30 Diverticulosis of large intestine without perforation or abscess without bleeding; Q43.8 Other specified congenital malformations of intestine; K57.90 Diverticulosis of intestine, part unspecified, without perforation or abscess without bleeding; I25.10 Atherosclerotic heart disease of native coronary artery without angina pectoris; J44.9 Chronic obstructive pulmonary disease, unspecified; K21.9 Gastro-esophageal reflux disease without esophagitis; E78.5 Hyperlipidemia, unspecified; I10 Essential (primary) hypertension; I25.2 Old myocardial infarction; M19.90 Unspecified osteoarthritis, unspecified site; Z87.01 Personal history of pneumonia (recurrent); H93.12 Tinnitus, left ear; J43.9 Emphysema, unspecified; G89.29 Other chronic pain; M25.552 Pain in left hip; R55 Syncope and collapse; Z90.89 Acquired absence of other organs; Z95.5 Presence of coronary angioplasty implant and graft; Z98.42 Cataract extraction status, left eye; Z98.41 Cataract extraction status, right eye; Z98.890 Other specified postprocedural states; Z87.891 Personal history of nicotine dependence; Z82.3 Family history of stroke; Z79.1 Long term (current) use of non-steroidal anti-inflammatories (NSAID); Z79.82 Long term (current) use of aspirin; Z79.899 Other long term (current) drug therapy
CPT/HCPCS: 74018; 45378; J2704; 74280

== ENCOUNTER → 2020-06-07 | Outpatient (CLI) | payer MEDICARE, BC | END | disposition home or self-care (01) | LOC: RADFLMAIN 09:45 | PROVIDERS: ATTEND Surgery | DX: Z53.9 Procedure and treatment not carried out, unspecified reason (principal) ==

== ENCOUNTER → 2023-09-10 | Outpatient (CLI) | payer MEDICARE, BC ==
--- NOTE | 2023-09-10 23:00 | CT ---
EXAMINATION TYPE: CT chest wo con CT DLP: 191.40 mGycm, Automated exposure control for dose reduction was used. DATE OF EXAM: 09/10/2023 9:43 AM COMPARISON: CT chest 09/19/2019, 11/29/2018. CLINICAL INDICATION:Male, 82 years old with history of R634 ABN WEIGHT LOSS; PHH, Abnormal weight los s, SOB, generalized weakness TECHNIQUE: Multiple axial images were obtained through the chest without IV contrast. Lack of IV or o ral contrast limits evaluation of solid and hollow organ viscera. . Coronal and sagittal reformats re viewed. FINDINGS: LUNGS/ PLEURA: No pleural effusion, pneumothorax, or focal consolidation. Moderate centrilobular emph ysematous changes. Several scattered pulmonary nodules demonstrated. Examples include a right apical 5.5 mm groundglass nodule (series 4, image 9). Not definitively visualized on prior exam. Stable rig ht upper lobe 3.1 mm pulmonary nodule (series 4, image 19). Left upper lobe 3.5 mm pulmonary nodule ( series 4, image 29). Not definitively visualized on prior exam. Stable right midlung 4.3 mm pulmonary nodule (series 4, image 39). AIRWAY: Patent and unremarkable.. HEART: Size within normal limits. Trace anterior pericardial effusion. MEDIASTINUM: No evidence of adenopathy. Right hilar punctate calcified lymph nodes. VASCULATURE: No aortic aneurysm. Conventional three-vessel aortic arch. Mild of this chronic calcifi cations in the aorta and its branches. Moderate to severe three-vessel coronary artery calcifications . MUSCULOSKELETAL: No acute osseous abnormalities. Mild multilevel degenerative disc disease. SOFT TISSUES/LYMPH NODES: Unremarkable. LOWER NECK: No significant findings. UPPER ABDOMEN: Punctate scattered calcified granulomas within the spleen. IMPRESSION: 1. No acute thoracic process. 2. Moderate COPD changes. 3. Several scattered pulmonary nodules. A few are not definitively visualized on prior examination. T he remaining appears stable. Consider follow-up CT chest in 12 months. 4. CAD with extensive three-vessel coronary artery calcifications redemonstrated. 5. Sequelae of prior granulomatous disease.
== END | disposition home or self-care (01) ==
LOC: RADCTMAIN 09:01
PROVIDERS: ATTEND Family Medicine
DX: J44.9 Chronic obstructive pulmonary disease, unspecified (principal); I25.10 Atherosclerotic heart disease of native coronary artery without angina pectoris; R63.4 Abnormal weight loss; R53.83 Other fatigue
CPT/HCPCS: 71250

== ENCOUNTER 2023-09-12 21:28 | Emergency (ER) | payer MEDICARE, BC ==
[2023-09-12 21:37] VITALS: TEMP 97.7
[2023-09-12] MEDS: PROPARACAINE 0.5% OPHTH DROPS 15 ML BTL LEFT EYE STA (22:02)
[2023-09-12] MEDS: FLUORESCEIN STRIPS 1 MG STRIP LEFT EYE ONE (22:02)
--- NOTE | 2023-09-12 22:44 | ED ---
Eye Problem HPI - General Chief complaint: Eye Problems Stated complaint: Foreign object in left eye Time Seen by Provider: 09/12/23 21:42 Source: patient Mode of arrival: ambulatory Limitations: no limitations - History of Present Illness Initial comments: 82-year-old male presenting with chief complaint of left eye discomfort. He states that he was pulling weeds when he felt like he got something in his eye. He still has a foreign body sensation. The eye is watering and irritated. No vision loss. No flashes or floaters. No difficulty with extraocular movements. - Related Data Home Medications Medication Instructions Recorded Confirmed Atorvastatin [Lipitor] 40 mg PO DAILY 01/29/15 06/06/20 Metoprolol Tartrate [Lopressor] 25 mg PO QAM 01/29/15 06/06/20 Timolol [Betimol 0.5% Ophth Soln] 1 drop BOTH EYES DAILY 01/29/15 06/06/20 allopurinoL [Zyloprim] 300 mg PO DAILY 01/29/15 06/06/20 amLODIPine [Norvasc] 5 mg PO DAILY 01/29/15 06/06/20 lisinopriL [Zestril] 20 mg PO DAILY 01/29/15 06/06/20 Aspirin [Adult Low Dose Aspirin EC] 81 mg PO DAILY 06/04/20 06/06/20 Cholecalciferol [Vitamin D3 (25 50 mcg PO DAILY 06/04/20 06/06/20 Mcg = 1000 Iu)] Meloxicam [Mobic] 15 mg PO DAILY 06/04/20 06/06/20 Allergies Allergy/AdvReac Type Severity Reaction Status Date / Time No Known Allergies Allergy Verified 09/12/23 21:37 Review of Systems ROS Statement: Those systems with pertinent positive or pertinent negative responses have been documented in the HPI. ROS Other: All systems not noted in ROS Statement are negative. Past Medical History Past Medical History: Coronary Artery Disease (CAD), COPD, GERD/Reflux, Hyperlipidemia, Hypertension, Myocardial Infarction ([place]), Osteoarthritis (OA), Pneumonia, Syncope Additional Past Medical History / Comment(s): mi x2, lt ear tinnitus, "touch of emphysema", chronic lt hip pain, diverticulosis, change in bowel habits, Last Myocardial Infarction Date:: 01-05-95 History of Any Multi-Drug Resistant Organisms: None Reported Past Surgical History: Adenoidectomy, Heart Catheterization, Heart Catheterization With Stent, Orthopedic Surgery, Tonsillectomy Additional Past Surgical History / Comment(s): regina cataracts removed, lt thumb sx to reconnect tendon. 4 heart caths mult sents Past Anesthesia/Blood Transfusion Reactions: No Reported Reaction Date of Last Stent Placement:: 01/08/2007 Past Psychological History: No Psychological Hx Reported Smoking Status: Former smoker Past Alcohol Use History: None Reported Past Drug Use History: None Reported - Past Family History Father Family Medical History: CVA/TIA Mother Additional Family Medical History / Comment(s): of complications of post op infection after bowel sx General Exam Limitations: no limitations General appearance: alert, in no apparent distress Head exam: Present: atraumatic, normocephalic Eye exam: Present: PERRL, EOMI, other (Small specks of uptake are seen on fluorescein staining). Absent: periorbital swelling Neck exam: Present: normal inspection. Absent: meningismus Respiratory exam: Absent: respiratory distress Cardiovascular Exam: Present: regular rate Neurological exam: Present: alert, oriented X3 Psychiatric exam: Present: normal affect, normal mood Skin exam: Present: normal color Course Vital Signs 09/12/23 09/12/23 21:35 23:03 Temperature 97.7 F Pulse Rate 61 54 L Respiratory 18 16 Rate Blood Pressure 173/63 181/65 O2 Sat by Pulse 99 99 Oximetry Medical Decision Making - Medical Decision Making Was pt. sent in by a medical professional or institution (Dr. PA, COPY CHIEF, urgent care, hospital, or longterm...) When possible be specific @ -No Did you speak to anyone other than the patient for history (EMS, parent, family, police, friend...)? What history was obtained from this source @ -No Did you review nursing and triage notes (agree or disagree)? Why? @ -I reviewed and agree with nursing and triage notes Were old charts reviewed (outside hosp., previous admission, EMS record, old EKG, old radiological studies, urgent care reports/EKG's, longterm records)? Report findings @ -No old charts were reviewed Differential Diagnosis (chest pain, altered mental status, abdominal pain women, abdominal pain men, vaginal bleeding, weakness, fever, dyspnea, syncope, headache, dizziness, GI bleed, back pain, seizure, CVA, palpatations, mental health, musculoskeletal)? @ -Differential includes foreign body, corneal abrasion, corneal ulcer, acute angle-closure glaucoma, this is not an all-inclusive list EKG interpreted by me (3pts min.). @ -As above X-rays interpreted by me (1pt min.). @ -None done CT interpreted by me (1pt min.). @ -None done U/S interpreted by me (1pt. min.). @ -None done What testing was considered but not performed or refused? (CT, X-rays, U/S, labs)? Why? @ -None What meds were considered but not given or refused? Why? @ -None Did you discuss the management of the patient with other professionals (professionals i.e. , PA, COPY CHIEF, lab, RT, psych nurse, clinical social work therapist, hosiery knitter, teacher, chairman & chief executive officer, hospice case manager)? Give summary @ -No Was smoking cessation discussed for >3mins.? @ -No Was critical care preformed (if so, how long)? @ -No Were there social determinants of health that impacted care today? How? (Homelessness, low income, unemployed, alcoholism, drug addiction, transportation, low edu. Level, literacy, decrease access to med. care, long-term, rehab)? @ -No Was there de-escalation of care discussed even if they declined (Discuss DNR or withdrawal of care, Hospice)? DNR status @ -No What co-morbidities impacted this encounter? (DM, HTN, Smoking, COPD, CAD, Cancer, CVA, ARF, Chemo, Hep., AIDS, mental health diagnosis, sleep apnea, morbid obesity)? @ -None Was patient admitted / discharged? Hospital course, mention meds given and route, prescriptions, significant lab abnormalities, going to OR and other pertinent info. @ -82-year-old male presenting with chief complaint of foreign body sensation to left eye. Started when he was pulling weeds today. Fluorescein staining and Gardiner lamp examination shows small specks of uptake on exam. No evidence of foreign body on inspection of the globe and inversion of the eyelid. Patient will be treated with sulfacetamide eyedrops for corneal abrasion. Provided with ketorolac eyedrops. Instructed to follow-up with his punch press operator. Discharged home. Follow-up with PCP. Report back to ER with any new or wo rsening symptoms. Discussed return parameters and answered all questions. Patient conveyed verbal understanding and agreed to the plan. I discussed this case in detail with my attending Dr. Vázquez Undiagnosed new problem with uncertain prognosis? @ -No Drug Therapy requiring intensive monitoring for toxicity (Heparin, Nitro, Insulin, Cardizem)? @ -No Were any procedures done? @ -No Diagnosis/symptom? @ -Corneal abrasion Acute, or Chronic, or Acute on Chronic? @ -Acute Uncomplicated (without systemic symptoms) or Complicated (systemic symptoms)? @ -Uncomplicated Side effects of treatment? @ -No Exacerbation, Progression, or Severe Exacerbation? @ -No Poses a threat to life or bodily function? How? (Chest pain, [place], LA, pneumonia, PE, COPD, DKA, ARF, appy, cholecystitis, CVA, Diverticulitis, Homicidal, Suicidal, threat to staff... and all critical care pts) @ -No Disposition Clinical Impression: Corneal abrasion Disposition: HOME SELF-CARE Condition: Good Instructions (If sedation given, give patient instructions): Corneal Abrasion (ED) Additional Instructions: Follow-up with your punch press operator. Report back to ER with any new or worsening symptoms. Apply 1 sulfacetamide eyedrop to the affected eye 4 times daily for 5 days to prevent infection Apply 1 ketorolac eyedrop to the affected eye up to 4 times daily as needed for pain Is patient prescribed a controlled substance at d/c from ED?: No Referrals: Mahamed Hernandez DO [Primary Care Provider] - 1-2 days Time of Disposition: 22:44
[2023-09-12] MEDS: SULFACETAMIDE SOD 10% OPHTH DROPS 15 ML BTL LEFT EYE STA (23:00)
[2023-09-12] MEDS: KETOROLAC 0.5% OPHTH DROPS 5 ML BTL LEFT EYE STA (23:01)
[2023-09-12 23:09] VITALS: BP 181/65; PULSE 54; RESP 16
== END 2023-09-12 23:07 | disposition home or self-care (01) ==
LOC: EC 21:28
DX: S05.02XA Injury of conjunctiva and corneal abrasion without foreign body, left eye, initial encounter (principal); Z87.891 Personal history of nicotine dependence; W22.8XXA Striking against or struck by other objects, initial encounter
CPT/HCPCS: 99283

== ENCOUNTER 2024-01-03 10:42 | Emergency (ER) | payer MEDICARE, BC ==
[2024-01-03 10:59] VITALS: BP 134/72; PULSE 55; RESP 16; TEMP 97.8
--- NOTE | 2024-01-03 11:02 | ED ---
Upper Extremity HPI - General Chief Complaint: Extremity Injury, Upper Stated Complaint: Fall-R arm pain Time Seen by Provider: 01/03/24 11:00 Source: patient, RN notes reviewed Mode of arrival: ambulatory Limitations: no limitations - History of Present Illness Initial Comments: This is an 83-year-old male presents emergency department chief complaint of a fall and subsequent wrist injury. States that he was at the grocery store yesterday when he tripped over an uneven piece of sidewalk when he fell onto his wrists and skinned his right knee. Patient denies hitting his head or loss conscious at time of the fall. States that he initially thought that he sprained his wrist however over the last day he has been experiencing increasing pain to the right hand and wrist and swelling. He denies previous surgeries of the hands or wrist. He denies paresthesias or loss range of motion however range of motion exacerbates pain. He denies other injuries at time of the fall. No other acute complaints at this time. - Related Data Home Medications Medication Instructions Recorded Confirmed Atorvastatin [Lipitor] 40 mg PO DAILY 01/29/15 06/06/20 Metoprolol Tartrate [Lopressor] 25 mg PO QAM 01/29/15 06/06/20 Timolol [Betimol 0.5% Ophth Soln] 1 drop BOTH EYES DAILY 01/29/15 06/06/20 allopurinoL [Zyloprim] 300 mg PO DAILY 01/29/15 06/06/20 amLODIPine [Norvasc] 5 mg PO DAILY 01/29/15 06/06/20 lisinopriL [Zestril] 20 mg PO DAILY 01/29/15 06/06/20 Aspirin [Adult Low Dose Aspirin EC] 81 mg PO DAILY 06/04/20 06/06/20 Cholecalciferol [Vitamin D3 (25 50 mcg PO DAILY 06/04/20 06/06/20 Mcg = 1000 Iu)] Meloxicam [Mobic] 15 mg PO DAILY 06/04/20 06/06/20 Allergies Allergy/AdvReac Type Severity Reaction Status Date / Time No Known Allergies Allergy Verified 01/03/24 10:59 Review of Systems ROS Statement: Those systems with pertinent positive or pertinent negative responses have been documented in the HPI. ROS Other: All systems not noted in ROS Statement are negative. Past Medical History Past Medical History: Coronary Artery Disease (CAD), COPD, GERD/Reflux, Hyperlipidemia, Hypertension, Myocardial Infarction ([place]), Osteoarthritis (OA), Pneumonia, Syncope Additional Past Medical History / Comment(s): mi x2, lt ear tinnitus, "touch of emphysema", chronic lt hip pain, diverticulosis, change in bowel habits, Last Myocardial Infarction Date:: 01-05-95 History of Any Multi-Drug Resistant Organisms: None Reported Past Surgical History: Adenoidectomy, Heart Catheterization, Heart Catheterization With Stent, Orthopedic Surgery, Tonsillectomy Additional Past Surgical History / Comment(s): regina cataracts removed, lt thumb sx to reconnect tendon. 4 heart caths mult sents Past Anesthesia/Blood Transfusion Reactions: No Reported Reaction Date of Last Stent Placement:: 01/08/2007 Past Psychological History: No Psychological Hx Reported Smoking Status: Former smoker Past Alcohol Use History: None Reported Past Drug Use History: None Reported - Past Family History Father Family Medical History: CVA/TIA Mother Additional Family Medical History / Comment(s): of complications of post op infection after bowel sx General Exam Limitations: no limitations Head exam: Present: atraumatic, normocephalic, normal inspection ENT exam: Present: normal exam, mucous membranes moist Neck exam: Present: normal inspection. Absent: tenderness, meningismus, lymphadenopathy Respiratory exam: Present: normal lung sounds bilaterally. Absent: respiratory distress, wheezes, rales, rhonchi, stridor Cardiovascular Exam: Present: regular rate, normal rhythm, normal heart sounds. Absent: systolic murmur, diastolic murmur, rubs, gallop, clicks GI/Abdominal exam: Present: soft, normal bowel sounds. Absent: distended, tenderness, guarding, rebound, rigid Right Hand Wrist exam: Present: full ROM (pain ), tenderness, swelling Neuro motor exam: Present: wrist extension intact, thumb opposition intact, thumb IP flexion intact, thumb adduction intact Vascular: Present: normal capillary refill, radial pulse (2+). Absent: vascular compromise Back exam: Present: normal inspection Skin exam: Present: warm, dry, intact, normal color. Absent: rash Course Vital Signs 01/03/24 10:56 Temperature 97.8 F Pulse Rate 55 L Respiratory 16 Rate Blood Pressure 134/72 O2 Sat by Pulse 98 Oximetry Medical Decision Making - Medical Decision Making Was pt. sent in by a medical professional or institution (ROBERT Dsouza, EHR TRAINER, urgent care, hospital, or detention...) When possible be specific @ -No Did you speak to anyone other than the patient for history (EMS, parent, family, police, friend...)? What history was obtained from this source @ -No Did you review nursing and triage notes (agree or disagree)? Why? @ -I reviewed and agree with nursing and triage notes Were old charts reviewed (outside hosp., previous admission, EMS record, old EKG, old radiological studies, urgent care reports/EKG's, detention records)? Report findings @ -No old charts were reviewed Differential Diagnosis (chest pain, altered mental status, abdominal pain women, abdominal pain men, vaginal bleeding, weakness, fever, dyspnea, syncope, headache, dizziness, GI bleed, back pain, seizure, CVA, palpatations, mental health, musculoskeletal)? @ -Differential Musculoskeletal Muscular strain, contusion, ligament sprain, fracture, arthritis, septic arthritis, bursitis, cellulitis, muscle spasm, nerve compression, DVT, arterial occlusion, herpes zoster, electrolyte abnormality, tumor.... This is not meant to be in all inclusive list EKG interpreted by me (3pts min.). @ -None X-rays interpreted by me (1pt min.). @ -Xray of bilateral wrists reveal no osseous abnormality Xray of the right hand reveals no evidence of osseous abnormality with soft tissue swelling of the dorsal hand CT interpreted by me (1pt min.). @ -None done U/S interpreted by me (1pt. min.). @ -None done What testing was considered but not performed or refused? (CT, X-rays, U/S, labs)? Why? @ -None What meds were considered but not given or refused? Why? @ -None Did you discuss the management of the patient with other professionals (professionals i.e. ROBERT Dsouza, EHR TRAINER, lab, RT, psych nurse, rn social services, solar electric installer, teacher, branch lending officer, clinical case manager)? Give summary @ -No Was smoking cessation discussed for >3mins.? @ -No Was critical care preformed (if so, how long)? @ -No Were there social determinants of health that impacted care today? How? (Homelessness, low income, unemployed, alcoholism, drug addiction, transportation, low edu. Level, literacy, decrease access to med. care, long term, rehab)? @ -No Was there de-escalation of care discussed even if they declined (Discuss DNR or withdrawal of care, Hospice)? DNR status @ -No What co-morbidities impacted this encounter? (DM, HTN, Smoking, COPD, CAD, Cancer, CVA, ARF, Chemo, Hep., AIDS, mental health diagnosis, sleep apnea, morbid obesity)? @ -None Was patient admitted / discharged? Hospital course, mention meds given and route, prescriptions, significant lab abnormalities, going to OR and other pertinent info. @ -Discharge. 83-year-old male with a fall and subsequent bilateral wrist pain and right wrist and hand pain. Patient noted to have edema of the right hand and ecchymosis as well. He has full range of motion however this exacerbates pain. He is neuro vastly intact. X-ray unremarkable for fracture. Patient's symptoms likely secondary to a sprain. He is placed in an Michael wrap and instructed to continue supportive treatment at home. Discussed with Dr. Huerta Undiagnosed new problem with uncertain prognosis? @ -No Drug Therapy requiring intensive monitoring for toxicity (Heparin, Nitro, Insulin, Cardizem)? @ -No Were any procedures done? @ -No Diagnosis/symptom? @ -Hand and wrist sprain Acute, or Chronic, or Acute on Chronic? @ -Acute Uncomplicated (without systemic symptoms) or Complicated (systemic symptoms)? @ -Uncomplicated Side effects of treatment? @ -No Exacerbation, Progression, or Severe Exacerbation? @ -No Poses a threat to life or bodily function? How? (Chest pain, [place], [place], pneumonia, PE, COPD, DKA, ARF, appy, cholecystitis, CVA, Diverticulitis, Homicidal, Suicidal, threat to staff... and all critical care pts) @ -No Disposition Clinical Impression: Wrist sprain, Hand sprain Disposition: HOME SELF-CARE Condition: Good Instructions (If sedation given, give patient instructions): Hand Sprain (ED) Additional Instructions: Please return to the Emergency Department if symptoms worsen or any other concerns. Continue symptomatic treatment at home resting the right wrist, use of Michael wrap for compression, ice, use of Tylenol and Motrin. Is patient prescribed a controlled substance at d/c from ED?: No Referrals: McPhilimy,Mahamed, DO [Primary Care Provider] - 1-2 days Time of Disposition: 12:05
--- NOTE | 2024-01-03 11:29 | XR ---
EXAMINATION TYPE: XR hand complete RT DATE OF EXAM: 01/03/2024 11:20 AM INDICATION: Patient age:Male; 83 years old; Reason for study: fall, injury, pain, swelling; PHH. COMPARISON: Lateral wrist radiographs of the same date TECHNIQUE: Frontal, lateral and oblique views of the right hand were obtained. FINDINGS: Normal alignment of the visualized joints. No acute osseous pathology is identified. No r adiopaque foreign body. Soft tissue swelling of the dorsal hand. IMPRESSION: 1. No acute osseous pathology. 2. Soft tissue swelling of the dorsal hand. [facility], , 01/03/2024 11:26 AM
--- NOTE | 2024-01-03 11:30 | XR ---
EXAMINATION TYPE: XR wrist complete BILATERAL DATE OF EXAM: 01/03/2024 11:20 AM INDICATION: Patient age:Male; 83 years old; Reason for study: fall, injury, pain, swelling; PHH. COMPARISON: Right hand radiograph of the same date TECHNIQUE: 4 views of both wrists. Frontal, navicular, lateral, and oblique. FINDINGS: No acute osseous pathology, joint dislocation, or joint effusion. Well-corticated osseous s tructure adjacent to the right ulnar styloid process likely representing remote injury. No evidence o f any soft tissue swelling is seen. IMPRESSION: No acute osseous pathology. [facility], , 01/03/2024 11:27 AM
== END 2024-01-03 12:35 | disposition home or self-care (01) ==
LOC: EC 10:42
CPT/HCPCS: 99283

== ENCOUNTER → 2024-01-27 | Outpatient (CLI) | payer MEDICARE, BC ==
[2024-01-27 12:10] LABS: African American GFR (CKD) >90 (>60 ml/min/1.73 sqM); Blood Urea Nitrogen 19 mg/dL (9-20); Non-African American GFR(CKD) 84 (>60 ml/min/1.73 sqM)
--- NOTE | 2024-01-27 13:48 | CT ---
EXAMINATION TYPE: CT chest w con CT DLP: 163 mGycm, Automated exposure control for dose reduction was used. DATE OF EXAM: 01/27/2024 12:45 PM COMPARISON: CT chest 09/10/2023, 09/19/2019, 11/29/2018. CLINICAL INDICATION:Male, 83 years old with history of R91.8 OTHER NONSPECIFIC ABNORMAL FINDING OF JOEL NG F; PHH, abnormal findings of lung field, COPD TECHNIQUE: Multiple axial images were obtained through the chest following the administration of 100 cc of Isovue 300. . Coronal and sagittal reformats reviewed. FINDINGS: LUNGS/ PLEURA: No pneumothorax, or focal consolidation. Trace left pleural effusion. Moderate centril obular emphysematous changes. Previously seen right apical nodule is poorly visualized on today's ex am. Stable right upper lobe 3.6 mm pulmonary nodule (series 4, image 16). Stable left upper lobe 3.2 mm pulmonary nodule (series 4, image 25). Stable left lower lobe 3.0 mm pulmonary nodule (series 4, i mage 30). Stable size of right mid lung 6.6 mm solid pulmonary nodule when measurement was similar [place] (series 4, image 36). No new or enlarging pulmonary nodules. AIRWAY: Patent and unremarkable.. HEART: Size within normal limits. Trace anterior pericardial effusion. MEDIASTINUM: Mildly enlarged precarinal lymph node measuring 1.0 cm short axis (series 3, image 24). Mildly enlarged 1.4 cm right hilar lymph node (series 3, image 28). Right hilar punctate calcified ly mph nodes. VASCULATURE: No aortic aneurysm. Conventional three-vessel aortic arch. Mild atherosclerotic calcifi cations in the aorta and its branches. Moderate to severe three-vessel coronary artery calcifications . MUSCULOSKELETAL: No acute osseous abnormalities. Mild multilevel degenerative disc disease. SOFT TISSUES/LYMPH NODES: Unremarkable. LOWER NECK: No significant findings. UPPER ABDOMEN: Punctate scattered calcified granulomas within the spleen. Partial visualization of a heterogenous enhancing lesion within the posterior right kidney measuring up to 5.1 cm (series 3, 73) . IMPRESSION: 1. Several stable scattered pulmonary nodules. No new or enlarging pulmonary nodules. 2. Partial visualization of heterogenous enhancing mass within the right kidney concerning for renal cell carcinoma until proven otherwise. Further evaluation with CT or MR abdomen with IV contrast (re nal mass protocol) is recommended. 3. Mildly enlarged nonspecific mediastinal and right hilar lymph nodes. May be related to #2. 4. CAD with extensive three-vessel coronary artery calcifications redemonstrated. 5. Sequelae of prior granulomatous disease. 6. Moderate COPD changes. [facility], , 01/27/2024 1:46 PM
== END | disposition home or self-care (01) ==
LOC: RADCTMAIN 11:33
PROVIDERS: ATTEND Internal Medicine
DX: J44.9 Chronic obstructive pulmonary disease, unspecified (principal); I25.10 Atherosclerotic heart disease of native coronary artery without angina pectoris; R91.8 Other nonspecific abnormal finding of lung field; G09 Sequelae of inflammatory diseases of central nervous system; C64.1 Malignant neoplasm of right kidney, except renal pelvis; I70.0 Atherosclerosis of aorta; Q25.49 Other congenital malformations of aorta; I31.39 Other pericardial effusion (noninflammatory)
CPT/HCPCS: 82565; 84520; 71260; 36415; Q9967

== ENCOUNTER → 2024-02-09 | Outpatient (CLI) | payer MEDICARE, BC ==
[2024-02-09 14:31] LABS: African American GFR (CKD) >90 (>60 ml/min/1.73 sqM); Blood Urea Nitrogen 20 mg/dL (9-20); Non-African American GFR(CKD) 81 (>60 ml/min/1.73 sqM)
--- NOTE | 2024-02-09 15:07 | CT ---
EXAMINATION TYPE: CT abdomen wo/w con CT DLP: 1036 mGycm, Automated exposure control for dose reduction was used. 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 Oral contrast was administered. Coronal and sagittal reformats w ere performed. FINDINGS: LOWER CHEST: Centrilobular emphysematous changes. Coronary artery calcifications. ABDOMEN LIVER: Unremarkable GALLBLADDER AND BILE DUCTS: Unremarkable. PANCREAS: Unremarkable. SPLEEN: Scattered calcified granulomas. ADRENAL GLANDS: Unremarkable. KIDNEYS AND URETERS: No evidence of hydronephrosis or renal calculus. Kidneys enhance symmetrically. Tiny left renal cortical cyst. Heterogenous enhancing right renal mass involving the superior pole of the right kidney. This measures 5.0 x 4.8 x 5.0 cm in TV, AP, CC dimensions. No evidence for renal v ein or IVC invasion. The right renal artery appears widely patent. STOMACH AND BOWEL: Stomach and duodenum are unremarkable. Sigmoid diverticulosis without visualized a cute diverticulitis. Enteric contrast reaches the distal small bowel. No evidence of bowel obstructio n. PERITONEUM: No evidence of pneumoperitoneum or free fluid. VASCULATURE: Moderate atherosclerotic calcifications are present throughout the abdominal aorta and i ts branches. No evidence of aortic aneurysm. MUSCULOSKELETAL: No acute osseous abnormalities. Degenerative changes of the bilateral SI joints with the right SI joint anterior bridging. Multilevel degenerative disc disease. No aggressive osseous le blanche. Mild retrolisthesis of L5 on S1. LYMPH NODES: No evidence for lymphadenopathy. SOFT TISSUE/ABDOMINAL WALL: Unremarkable IMPRESSION: 1. Heterogenous enhancing right renal 5.0 cm mass corresponding to prior CT. This is highly concerni ng for renal cell carcinoma until proven otherwise. Urology consultation is recommended. No evidence for metastasis within the visualized abdomen. 2. Colonic diverticulosis without visualized acute diverticulitis. 3. COPD changes. [facility], , 02/09/2024 3:05 PM
== END | disposition home or self-care (01) ==
LOC: RADCTMAIN 13:13
PROVIDERS: ATTEND Urology
DX: D41.01 Neoplasm of uncertain behavior of right kidney (principal); J44.9 Chronic obstructive pulmonary disease, unspecified; K57.30 Diverticulosis of large intestine without perforation or abscess without bleeding; I70.0 Atherosclerosis of aorta; N28.89 Other specified disorders of kidney and ureter; N28.1 Cyst of kidney, acquired
CPT/HCPCS: 82565; 84520; 74170; 36415; Q9967

== ENCOUNTER → 2024-03-22 | Outpatient (CLI) | payer MEDICARE, BC ==
--- NOTE | 2024-03-22 13:19 | XR ---
EXAMINATION TYPE: XR chest 2V DATE OF EXAM: 03/22/2024 12:49 PM COMPARISON: 02/24/2018 CLINICAL INDICATION: Male, 83 years old with history of Z01.818 PRE OP, urology procedure, TECHNIQUE: Frontal and lateral views FINDINGS: Heart is upper limits of normal in size. Interstitial prominence and hyperinflation. Some mild patchy infrahilar densities on both sides. No other consolidation or pleural effusion. Prominent nipple sha gray on the right. IMPRESSION: COPD. Some mild infrahilar densities on both sides, likely atelectasis. Correlate with symptoms to ex clude the possibility of early infiltrates. [facility], , 03/22/2024 1:16 PM
[2024-03-22 19:52] LABS: BUN/Creat Ratio 20.22 Ratio (12.00-20.00); Blood Urea Nitrogen 18.2 mg/dL (9.0-27.0); Calcium 9.4 mg/dL (8.7-10.3); Carbon Dioxide 30.2 mmol/L (21.6-31.8); Chloride 103 mmol/L (96-109); Glucose 100 mg/dL (70-110); Sodium 142 mmol/L (135-145)
[2024-03-22 20:08] LABS: Basophils # (A) 0.03 X 10*3/uL (0.00-0.10); Basophils % (A) 0.5 %; Eosinophils # (A) 0.17 X 10*3/uL (0.04-0.35); Eosinophils % (A) 2.7 %; HCT 45.1 % (39.6-50.0); HGB 14.5 g/dL (13.0-17.0); Lymphocytes # (A) 0.79 X 10*3/uL (0.90-5.00); Lymphocytes % (A) 12.7 %; MCH 31.2 pg (27.0-32.0); MCHC 32.2 g/dL (32.0-37.0); Mean Platelet Volume 10.9 FL (9.5-12.2); Monocytes # (A) 0.44 X 10*3/uL (0.20-1.00); Monocytes % (A) 7.1 %; NRBC Per 100 WBC 0 X 10*3/uL (0.00-0.01); Neutrophils # (A) 4.76 X 10*3/uL (1.80-7.70); Neutrophils % (A) 76.4 %; Platelet Count 210 X 10*3/uL (140-440); RBC 4.65 X 10*6/uL (4.40-5.60); RDW 13.4 % (11.5-14.5); WBC 6.23 X 10*3/uL (4.50-10.00)
== END | disposition home or self-care (01) ==
LOC: LABPAT 12:26
PROVIDERS: ATTEND Urology
DX: Z01.818 Encounter for other preprocedural examination (principal); D41.01 Neoplasm of uncertain behavior of right kidney
CPT/HCPCS: 36415; 71046; 80048; 85025; 86850; 86900; 86901; 93005

== ENCOUNTER 2024-06-12 14:13 | Inpatient (IN) | payer MEDICARE, BC ==
--- NOTE | 2024-06-12 14:38 | ED ---
General Adult HPI - General Chief complaint: Shortness of Breath Stated complaint: SOB Time Seen by Provider: 06/12/24 14:19 Source: patient, RN notes reviewed, old records reviewed Mode of arrival: ambulatory Limitations: no limitations - History of Present Illness Initial comments: 83-year-old male presents with persistent cough and dyspnea. Cough is productive has been present for the past 5 days. Patient was seen by his watchmaking teacher and started on antibiotics he states he continues to have symptoms and does not feel as though he is improving. He has a history of COPD. He denies fever. He does report some left-sided chest discomfort. No lower extremity pain or swelling. - Related Data Home Medications Medication Instructions Recorded Confirmed Atorvastatin [Lipitor] 40 mg PO HS 01/29/15 03/23/24 Metoprolol Tartrate [Lopressor] 25 mg PO QAM 01/29/15 03/23/24 Timolol [Betimol 0.5% Ophth Soln] 1 drop BOTH EYES QA 01/29/15 03/23/24 allopurinoL [Zyloprim] 300 mg PO QAM 01/29/15 03/23/24 amLODIPine [Norvasc] 5 mg PO QAM 01/29/15 03/23/24 lisinopriL [Zestril] 20 mg PO QAM 01/29/15 03/23/24 Aspirin [Adult Low Dose Aspirin EC] 81 mg PO QAM 06/04/20 03/23/24 Cholecalciferol [Vitamin D3 (25 50 mcg PO QAM 06/04/20 03/23/24 Mcg = 1000 Iu)] Fluticasone/Umeclidin/Vilanter 1 puff INHALATION QA 03/23/24 03/23/24 [Trelegy Ellipta 100-62.5-25] Previous Rx's Medication Instructions Recorded HYDROcodone/APAP 5-325MG [[place] 1 tab PO Q6HR PRN 3 Days #12 tab 04/02/24 5-325] Ketorolac [Toradol] 10 mg PO Q6HR PRN #10 tab 04/05/24 Allergies Allergy/AdvReac Type Severity Reaction Status Date / Time No Known Allergies Allergy Verified 03/23/24 11:48 Review of Systems ROS Statement: Those systems with pertinent positive or pertinent negative responses have been documented in the HPI. ROS Other: All systems not noted in ROS Statement are negative. Past Medical History Past Medical History: Coronary Artery Disease (CAD), COPD, GERD/Reflux, Hyperlipidemia, Hypertension, Myocardial Infarction (MO), Osteoarthritis (OA), Pneumonia, Syncope Additional Past Medical History / Comment(s): mi x2, lt ear tinnitus, "touch of emphysema", chronic lt hip pain, diverticulosis, change in bowel habits, Last Myocardial Infarction Date:: 01-05-95 History of Any Multi-Drug Resistant Organisms: None Reported Past Surgical History: Adenoidectomy, Heart Catheterization, Heart Catheterization With Stent, Orthopedic Surgery, Tonsillectomy Additional Past Surgical History / Comment(s): regina cataracts removed, lt thumb sx to reconnect tendon. 4 heart caths mult sents Past Anesthesia/Blood Transfusion Reactions: No Reported Reaction Additional Past Anesthesia/Blood Transfusion Reaction / Comment(s): No hx of blood transfusion to date. Date of Last Stent Placement:: 01/08/2007 Past Psychological History: No Psychological Hx Reported Smoking Status: Former smoker Past Alcohol Use History: None Reported Past Drug Use History: None Reported - Past Family History Mother Additional Family Medical History / Comment(s): of complications of post op infection after bowel sx Son(s) Family Medical History: Cancer Additional Family Medical History / Comment(s): Pancreatic cancer. General Exam Limitations: no limitations General appearance: alert, in no apparent distress Head exam: Present: atraumatic, normocephalic Eye exam: Present: normal appearance, PERRL ENT exam: Present: normal exam Neck exam: Present: normal inspection. Absent: tenderness, meningismus Respiratory exam: Present: decreased breath sounds. Absent: respiratory distress Cardiovascular Exam: Present: regular rate, normal rhythm GI/Abdominal exam: Present: soft. Absent: distended, tenderness, guarding Extremities exam: Present: normal inspection, normal capillary refill. Absent: pedal edema Neurological exam: Present: alert, oriented X3, CN II-XII intact. Absent: motor sensory deficit Skin exam: Present: warm, dry, intact. Absent: cyanosis, diaphoretic Course Vital Signs 06/12/24 06/12/24 14:15 14:30 Temperature 98.6 F Pulse Rate 84 Respiratory 16 20 Rate Blood Pressure 126/61 O2 Sat by Pulse 93 L Oximetry Medical Decision Making - Medical Decision Making Was pt. sent in by a medical professional or institution (ROBERT Dsouza, PUBLICATION MANAGER, urgent care, hospital, or detention...) When possible be specific @ -No Did you speak to anyone other than the patient for history (EMS, parent, family, police, friend...)? What history was obtained from this source @ -No Did you review nursing and triage notes (agree or disagree)? Why? @ -I reviewed and agree with nursing and triage notes Were old charts reviewed (outside hosp., previous admission, EMS record, old EKG, old radiological studies, urgent care reports/EKG's, detention records)? Report findings @ -No old charts were reviewed Differential Dyspnea: Coronary syndrome, arrhythmia, tamponade, asthma, COPD, pulmonary embolism, pneumonia, pneumothorax, pulmonary effusion, anaphylaxis, diabetic ketoacidosis, flailed chest, pulmonary contusion, diaphragmatic rupture, anemia, neuromuscular, this is not meant to be an all-inclusive list. EKG interpreted by me (3pts min.). @Sinus rhythm rate of 74, WI interval 186, QRS duration 91, QTc [address] segment elevation. X-rays interpreted by me (1pt min.). @Chest x-ray showing left-sided masslike consolidation CT interpreted by me (1pt min.). @ -None done U/S interpreted by me (1pt. min.). @ -None done What testing was considered but not performed or refused? (CT, X-rays, U/S, labs)? Why? @ -None What meds were considered but not given or refused? Why? @ -None Did you discuss the management of the patient with other professionals (professionals i.e. ROBERT Dsouza, PUBLICATION MANAGER, lab, RT, psych nurse, vp digital marketing social media and crm, nursing administrator, teacher, medical laboratory technical officer, case sealer)? Give summary @ -[facility], Dr. Trejo Was smoking cessation discussed for >3mins.? @ -No Was critical care preformed (if so, how long)? @ -No Were there social determinants of health that impacted care today? How? (Homelessness, low income, unemployed, alcoholism, drug addiction, vasquez sportation, low edu. Level, literacy, decrease access to med. care, [facility], rehab)? @ -No Was there de-escalation of care discussed even if they declined (Discuss DNR or withdrawal of care, Hospice)? DNR status @ -No What co-morbidities impacted this encounter? (DM, HTN, Smoking, COPD, CAD, Cancer, CVA, ARF, Chemo, Hep., AIDS, mental health diagnosis, sleep apnea, morbid obesity)? @COPD] Was patient admitted / discharged? Hospital course, mention meds given and route, prescriptions, significant lab abnormalities, going to OR and other pertinent info. @83-year-old male treated for pneumonia as an outpatient with worsening dyspnea, productive cough. Patient has x-ray evidence of consolidated pneumonia on the left. Mild leukocytosis which is predominantly neutrophils. Patient started on ceftriaxone and azithromycin in the emergency department admitted for further management of acute pneumonia, failed outpatient treatment. Undiagnosed new problem with uncertain prognosis? @ -No Drug Therapy requiring intensive monitoring for toxicity (Heparin, Nitro, Insulin, Cardizem)? @ -No Were any procedures done? @ -No Diagnosis/symptom? @Pneumonia Acute, or Chronic, or Acute on Chronic? @ -Acute Uncomplicated (without systemic symptoms) or Complicated (systemic symptoms)? @ -Default Side effects of treatment? @ -No Exacerbation, Progression, or Severe Exacerbation? @ -No Poses a threat to life or bodily function? How? (Chest pain, USA, MO, pneumonia, PE, COPD, DKA, ARF, appy, cholecystitis, CVA, Diverticulitis, Homicidal, Suicidal, threat to staff... and all critical care pts) @Yes, sepsis, respiratory failure - Lab Data Result diagrams: 06/12/24 14:35 06/12/24 14:35 Lab Results 06/12/24 06/12/24 06/12/24 Range/Units 14:35 14:35 14:35 WBC 13.3 H (3.8-10.6) k/uL RBC 4.12 L (4.30-5.90) m/uL Hgb 12.9 L (13.0-17.5) gm/dL Hct 38.7 L (39.0-53.0) % MCV 93.9 (80.0-100.0) fL MCH 31.3 (25.0-35.0) pg MCHC 33.4 (31.0-37.0) g/dL RDW 13.9 (11.5-15.5) % Plt Count 239 (150-450) k/uL MPV 8.3 Neutrophils % 89 % Lymphocytes % 3 % Monocytes % 6 % Eosinophils % 1 % Basophils % 0 % Neutrophils # 11.9 H (1.3-7.7) k/uL Lymphocytes # 0.4 L (1.0-4.8) k/uL Monocytes # 0.8 (0-1.0) k/uL Eosinophils # 0.1 (0-0.7) k/uL Basophils # 0.0 (0-0.2) k/uL Sodium 135 L (137-145) mmol/L Potassium 4.5 (3.5-5.1) mmol/L Chloride 102 (98-107) mmol/L Carbon Dioxide 22 (22-30) mmol/L Anion Gap 11 mmol/L BUN 31 H (9-20) mg/dL Creatinine 1.44 H (0.66-1.25) mg/dL Est GFR (CKD-EPI)AfAm 51 (>60 ml/min/1.73 sqM) Est GFR (CKD-EPI)NonAf 44 (>60 ml/min/1.73 sqM) Glucose 113 H (74-99) mg/dL Plasma Lactic Acid Anuj 1.4 (0.7-2.0) mmol/L Calcium 8.9 (8.4-10.2) mg/dL Magnesium 2.0 (1.6-2.3) mg/dL Total Bilirubin 1.3 (0.2-1.3) mg/dL AST 35 (17-59) U/L ALT 31 (4-49) U/L Alkaline Phosphatase 103 (38-126) U/L Total Protein 5.9 L (6.3-8.2) g/dL Albumin 3.3 L (3.5-5.0) g/dL Disposition Clinical Impression: Community acquired pneumonia, COPD (chronic obstructive pulmonary disease) Disposition: ADMITTED IP TO THIS HOSP Condition: Stable Is patient prescribed a controlled substance at d/c from ED?: No Referrals: None,Stated [Primary Care Provider] - 1-2 days Time of Disposition: 15:21
[2024-06-12 14:48] LABS: Basophils % (A) 0 %; Eosinophils # (A) 0.1 k/uL (0-0.7); Eosinophils % (A) 1 %; HCT 38.7 % (39.0-53.0); HGB 12.9 gm/dL (13.0-17.5); Lymphocytes # (A) 0.4 k/uL (1.0-4.8); Lymphocytes % (A) 3 %; MCH 31.3 pg (25.0-35.0); MCHC 33.4 g/dL (31.0-37.0); MCV 93.9 fL (80.0-100.0); Mean Platelet Volume 8.3; Monocytes # (A) 0.8 k/uL (0-1.0); Monocytes % (A) 6 %; Neutrophils # (A) 11.9 k/uL (1.3-7.7); Neutrophils % (A) 89 %; Platelet Count 239 k/uL (150-450); RBC 4.12 m/uL (4.30-5.90); RDW 13.9 % (11.5-15.5); WBC 13.3 k/uL (3.8-10.6)
--- NOTE | 2024-06-12 15:02 | XR ---
EXAMINATION TYPE: XR chest 2V DATE OF EXAM: 06/12/2024 CLINICAL INDICATION: Male, 83 years old with history of difficulty breathing, TECHNIQUE: Frontal and lateral views of the chest are obtained. COMPARISON: Chest x-ray March 2024 FINDINGS: Background chronic emphysematous change with new small to moderate-sized left pleural effus ion and left hilar masslike opacity. The cardiac silhouette size remains within normal limits. The osseous structures are intact. IMPRESSION: New small to moderate-sized left pleural effusion. New left hilar masslike consolidation worrisome for pneumonia. Correlate clinically. Progress study advised to rule out underlying mass/donny plasm. [facility], , 06/12/2024 2:59 PM
[2024-06-12 15:05] LABS: ALT 31 U/L (4-49); AST 35 U/L (17-59); African American GFR (CKD) 51 (>60 ml/min/1.73 sqM); Albumin 3.3 g/dL (3.5-5.0); Alkaline Phosphatase 103 U/L (38-126); Anion Gap 11 mmol/L; Blood Urea Nitrogen 31 mg/dL (9-20); Calcium 8.9 mg/dL (8.4-10.2); Carbon Dioxide 22 mmol/L (22-30); Chloride 102 mmol/L (98-107); Glucose 113 mg/dL (74-99); Non-African American GFR(CKD) 44 (>60 ml/min/1.73 sqM); Potassium 4.5 mmol/L (3.5-5.1); Sodium 135 mmol/L (137-145); Total Bilirubin 1.3 mg/dL (0.2-1.3); Total Protein 5.9 g/dL (6.3-8.2)
[2024-06-12] MEDS ORDERED: ACETAMINOPHEN TAB 325 MG TAB PO PRN (15:15)
[2024-06-12] MEDS ORDERED: IPRATROPIUM-ALBUTEROL 3 ML NEB INHALATION PRN (15:15)
[2024-06-12] MEDS ORDERED: NALOXONE 0.4 MG/ML 1 ML VIAL IVP PRN (15:15)
[2024-06-12 15:23] LABS: Partial Thromboplastin Time 26.5 sec (22.0-30.0); Prothrombin Time 11.4 sec (10.0-12.5)
[2024-06-12 15:27] LABS: Influenza A Not Detected (Not Detectd); Influenza B Not Detected (Not Detectd); RSV Not Detected (Not Detectd)
[2024-06-12] MEDS: methylPREDNISolone SOD SUCCI 125 MG/2 ML VIAL IV STA (15:29)
[2024-06-12] MEDS ORDERED: HYDROcodone/APAP 5-325MG 1 EACH TAB PO PRN (16:03)
[2024-06-12] MEDS: SODIUM CHLORIDE 0.9% 1,000 ML IV SCH (16:28)
[2024-06-12] MEDS: AZITHROMYCIN 500 MG in SODIUM CHLORIDE 0.9% 250 ML IVPB STA (16:28)
[2024-06-12] MEDS: IPRATROPIUM-ALBUTEROL 3 ML NEB INHALATION SCH (17:02)
--- NOTE | 2024-06-12 17:52 | P.HPIM ---
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 Patient follows with failure analysis engineer Dr. Lobo and sales performance manager Dr. Monsivais. He presented to the emergency department with a chief complaint of shortness of breath and nonproductive cough. Patient reports the symptoms began approximately 6-7 days ago so he went to see his sales performance manager Dr. Monsivais on , 06/01/2024 and was diagnosed with pneumonia and started on oral antibiotic with Levaquin. Patient reports he is taking antibiotic as prescribed but continues to have persistent and somewhat worsening shortness of breath and intractable coarse cough. Patient's at bedside reports he had fevers x 2 days with highest temp at home being 101 F. Patient admits to chest pain with coughing but currently denies having chest pain at rest. He denies having any headache, lightheadedness, dizziness, diaphoresis, palpitations, nausea, vomiting, or experiencing any numbness/tingling/weakness/swelling in his extremities. Upon arrival to our facility, patient underwent evaluation in the emergency department. Vital signs upon arrival show blood pressure 126/61, heart rate 84, respiratory rate 16, temp 98.6 F, and SpO2 of 93% on room air. EKG completed showing normal sinus rhythm at 74 bpm. Chest x-ray revealing left-sided masslike consolidation. Labs completed and reviewed. CBC showing leukocytosis with WBC count of 13.3 and normocytic anemia with hemoglobin of 12.9. Coagulation profile normal findings. BMP showing acute kidney injury with BUN of 31, creatinine 1.44, GFR 44 with baseline creatinine of 0.9. Magnesium 2.0. Liver profile unremarkable with exception of low total protein of 5.9 and albumin of 3.3. Influenza A, influenza B, RSV, COVID PCR negative. Patient admitted under our services with consultation to pulmonology. Review of systems: Pertinent positives and negatives as discussed in HPI, a complete review of systems was performed and all other systems are negative. Physical exam: Vital signs reviewed and stable. General: Nontoxic, no distress and appears stated age. Derm: Skin warm and dry, normal coloration for ethnicity. Head: Atraumatic, normocephalic and symmetric. Eyes: EOM's intact, no lid lag, and anicteric sclera Mouth: no lip lesions, mucus membranes moist Cardiovascular: regular rate and rhythm with normal S1S2, no murmur, positive po sterior tibial pulses bilaterally, and cap refill < 2 seconds. Lungs: Respirations even, regular, and unlabored on room air. Lungs tight and diminished with diffuse soft rhonchi. Coarse cough. Abdominal: soft, nontender to palpation, no guarding, no appreciable organomegaly Ext: ROM intact. No gross muscle atrophy, no edema, no contractures Neuro: Speech clear, face symmetrical and CN II-XII grossly intact with no noted focal neuro deficits Psych: Alert and oriented to person, place, time, and situation. Appropriate and pleasant affect. Assessment and Plan of Care: Community-acquired pneumonia left lung with masslike consolidation, failed outpatient management with Levaquin COPD/emphysema with mild exacerbation, secondary to above -Pulm consulted, appreciate recommendations -Oxygenation to be administered and titrated as needed to maintain SPO2 equal to or greater than 92% -Telemetry monitoring. -Monitor pulse-oximetry -Duonebs scheduled 4 times daily and as needed for SOB and/or wheezing -Incentive Spirometry -Steroids: Solu-Medrol 60 mg IVP every 6 hours -Antibiotics: Zithromax 500 mg daily and Rocephin 2 g daily. -Sputum culture, urine Legionella and blood culture. -Continue with Symbicort 160-4.5 mcg inhaler 2 puffs twice daily. Acute kidney injury -Hold lisinopril and patient started on gentle IV fluid hydration with 0.9% nor mal saline at 75 cc/h. Will continue to monitor closely with repeat morning labs. -Order placed for urinalysis and bladder scan to monitor for postvoid residual/retention CAD status post stenting Hypertension Hyperlipidemia -Lisinopril held secondary to RADHA.. Patient to continue aspirin 81 mg daily, amlodipine 5 mg daily, atorvastatin 40 mg nightly, and metoprolol 25 mg daily. Bilateral cataracts status post removal -Continue daily home eyedrops with timolol 1 drop both eyes daily. Data and imaging reviewed: As stated above in HPI The patient is admitted with an anticipated greater than 2 midnight stay for evaluation of Community-acquired pneumonia left lung with masslike consolid ation, failed outpatient management with Levaquin CODE STATUS: Full code DVT prophylaxis: Heparin Discussed with: Patient, patient's at bedside, ED physician, and DOOR SLINGER. Anticipated discharge date: Pending clinical course Anticipated discharge place: Home Patient was seen independently by Nurse Practitioner. This document was prepared using [employer] dictation software. Please allow for errors in territory sales manager medical while rare they do occur. Dale Mendez NP rendered care for this patient independently, reviewed the findings and plan as documented in the note above and agree with plan. I did not physically speak with or examine the patient on this date. Past Medical History Past Medical History: Coronary Artery Disease (CAD), COPD, GERD/Reflux, Hyperlipidemia, Hypertension, Myocardial Infarction ([place]), Osteoarthritis (OA), Pneumonia, Syncope Additional Past Medical History / Comment(s): mi x2, lt ear tinnitus, "touch of emphysema", chronic lt hip pain, diverticulosis, change in bowel habits, Last Myocardial Infarction Date:: 01-05-95 History of Any Multi-Drug Resistant Organisms: None Reported Past Surgical History: Adenoidectomy, Heart Catheterization, Heart Catheterization With Stent, Orthopedic Surgery, Tonsillectomy Additional Past Surgical History / Comment(s): regina cataracts removed, lt thumb sx to reconnect tendon. 4 heart caths mult sents Past Anesthesia/Blood Transfusion Reactions: No Reported Reaction Additional Past Anesthesia/Blood Transfusion Reaction / Comment(s): No hx of blood transfusion to date. Date of Last Stent Placement:: 01/08/2007 Past Psychological History: No Psychological Hx Reported Smoking Status: Former smoker Past Alcohol Use History: None Reported Past Drug Use History: None Reported - Past Family History Mother Additional Family Medical History / Comment(s): of complications of post op infection after bowel sx Son(s) Family Medical History: Cancer Additional Family Medical History / Comment(s): Pancreatic cancer. Medications and Allergies Home Medications Medication Instructions Recorded Confirmed Type Atorvastatin [Lipitor] 40 mg PO HS 01/29/15 06/12/24 History Metoprolol Tartrate [Lopressor] 25 mg PO DAILY 01/29/15 06/12/24 History Timolol [Betimol 0.5% Ophth Soln] 1 drop BOTH EYES DAILY 01/29/15 06/12/24 H istory allopurinoL [Zyloprim] 300 mg PO DAILY 01/29/15 06/12/24 History amLODIPine [Norvasc] 5 mg PO DAILY 01/29/15 06/12/24 History lisinopriL [Zestril] 20 mg PO DAILY 01/29/15 06/12/24 History Aspirin [Adult Low Dose Aspirin EC] 81 mg PO DAILY 06/04/20 06/12/24 History Fluticasone/Umeclidin/Vilanter 1 puff INHALATION RT-DAILY 03/23/24 06/12/24 History [Trelegy Ellipta 100-62.5-25] Levofloxacin [Levaquin] 500 mg PO DAILY 06/12/24 06/12/24 History Allergies Allergy/AdvReac Type Severity Reaction Status Date / Time No Known Allergies Allergy Verified 06/12/24 16:46 Physical Exam Vitals: Vital Signs Temp Pulse Resp BP Pulse Ox 06/12/24 14:30 20 06/12/24 14:15 98.6 F 84 16 126/61 93 L Intake and Output 06/12/24 06/12/24 06/12/24 06:59 14:59 22:59 Other: Weight 65.771 kg Results CBC & Chem 7: 06/12/24 14:35 06/12/24 14:35 Labs: Abnormal Lab Results - Last 24 Hours (Table) 06/12/24 06/12/24 Range/Units 14:35 14:35 WBC 13.3 H (3.8-10.6) k/uL RBC 4.12 L (4.30-5.90) m/uL Hgb 12.9 L (13.0-17.5) gm/dL Hct 38.7 L (39.0-53.0) % Neutrophils # 11.9 H (1.3-7.7) k/uL Lymphocytes # 0.4 L (1.0-4.8) k/uL Sodium 135 L (137-145) mmol/L BUN 31 H (9-20) mg/dL Creatinine 1.44 H (0.66-1.25) mg/dL Glucose 113 H (74-99) mg/dL Total Protein 5.9 L (6.3-8.2) g/dL Albumin 3.3 L (3.5-5.0) g/dL
[2024-06-12] MEDS: methylPREDNISolone SOD SUCCI 125 MG/2 ML VIAL IV SCH (18:32)
[2024-06-12] MEDS: HEPARIN SODIUM,PORCINE 5,000 UNIT/ML 1 ML VIAL SQ SCH (20:45)
[2024-06-12] MEDS: ATORVASTATIN 40 MG TAB PO SCH (20:45)
[2024-06-12 22:22] LABS: Appearance,Urine Cloudy (Clear); Bacteria,Urine Rare /hpf; Bilirubin,Urine Negative (Negative); Blood,Urine Trace (Negative); Color,Urine Yellow; Glucose,Urine (UA) Negative (Negative); Ketones,Urine Negative (Negative); Leukocyte Esterase,Urine Negative (Negative); Mucus,Urine Moderate /hpf; Nitrite,Urine Negative (Negative); PH, Urine 5.5 (5.0-8.0); Protein,Urine 1+ (Negative); RBC,Urine 6 /hpf (0-5); Specific Gravity,Urine 1.028 (1.001-1.035); Squamous Epithelial Cell,Urine <1 /hpf (0-4); Urobilinogen,Urine <2.0 mg/dL (<2.0); WBC,Urine 7 /hpf (0-5)
[2024-06-13 08:28] LABS: HCT 32.3 % (39.6-50.0); HGB 10.6 g/dL (13.0-17.0); MCH 31.1 pg (27.0-32.0); MCHC 32.8 g/dL (32.0-37.0); MCV 94.7 FL (80.0-97.0); Mean Platelet Volume 11.1 FL (9.5-12.2); NRBC Per 100 WBC 0 X 10*3/uL (0.00-0.01); Platelet Count 186 X 10*3/uL (140-440); RBC 3.41 X 10*6/uL (4.40-5.60); WBC 6.61 X 10*3/uL (4.50-10.00)
[2024-06-13 08:34] LABS: ALT 30 U/L (10-49); AST 31 U/L (14-35); Albumin 2.8 g/dL (3.8-4.9); Albumin/Globulin Ratio 1.22 Ratio (1.60-3.17); Alkaline Phosphatase 88 U/L (41-126); Calcium 8.3 mg/dL (8.7-10.3); Carbon Dioxide 21.1 mmol/L (21.6-31.8); Chloride 102 mmol/L (96-109); Globulin 2.3 g/dL (1.6-3.3); Glucose 165 mg/dL (70-110); Magnesium 2.1 mg/dL (1.5-2.4); Potassium 4.3 mmol/L (3.5-5.5); Sodium 133 mmol/L (135-145); Total Bilirubin 0.4 mg/dL (0.3-1.2); Total Protein 5.1 g/dL (6.2-8.2)
[2024-06-13] MEDS: SYMBICORT 160-4.5 MCG INHALER INHALATION SCH (09:09)
[2024-06-13] MEDS: METOPROLOL TARTRATE 25 MG TAB PO SCH (09:48)
[2024-06-13] MEDS: ASPIRIN 81 MG PO SCH (09:49)
[2024-06-13] MEDS: amLODIPine 5 MG TAB PO SCH (09:49)
[2024-06-13] MEDS: TIMOLOL 0.5% OPHTH DROPS 5 ML BTL BOTH EYES SCH (09:50)
[2024-06-13 15:47] VITALS: BMI 21.4
--- NOTE | 2024-06-13 16:15 | P.CNPUL ---
History of Present Illness Consult date: 06/13/24 Reason for consult: dyspnea History of present illness: This is a 83-year-old male patient, who was hospitalized for an extensive left lung pneumonia. The patient is known to have COPD, and he has been followed up by Dr. Lopez on outpatient basis. The patient remains on Trelegy Ellipta 100 mcg 1 puff a day and albuterol nebulizer treatments on 828 basis. The patient is known to have an FEV1 of 62% of predicted at baseline. The patient was seen in the office on 06/08/2024 and he was complaining of 1 week history of cough and brownish sputum production. Denies having any fever and he was having some chills. A chest x-ray was done in the office on 06/08/2024 and the chest x-ray showed COPD with some minimal left midlung pulmonary infiltrates. The patient was given Levaquin and a prednisone burst taper. Patient's condition decompe nsated the patient came into the Emergency Department with worsening shortness of breath. He denied having any pleurisy. No hemoptysis. The reported fevers and the temperature was as high as 101 and the patient was getting progressively weak. In the emergency department, the patient had a pulse ox of 93% room air oxygen. He was afebrile and hemodynamically stable. A repeat chest x-ray was done and there was significant progression in the pneumonia and the patient was found to have an extensive masslike consolidation involving the left lung along with a small left-sided pleural effusion. Based on that, the patient was hospitalized. He is currently on a combination of IV Rocephin and Zithromax. He is on DuoNeb nebulizers [id number] and IV Solu-Medrol. Blood cultures were sent and the results are still pending for now. The white cell count is currently at 6.6 dropped from 13.3. His electrolytes are normal. He is viral screen came back negative. Legionella urine antigen came back negative. Liver function studies are essentially within normal limits. Blood sugar is slightly elevated. Clinically, he is awake and alert and communicating. He remains on room air oxygen. Overall, feeling better compared to yesterday. Review of Systems Constitutional: Reports as per HPI, Reports fatigue, Reports weakness Eyes: denies as per HPI, denies blurred vision, denies bulging eye, denies decreased vision, denies diplopia, denies discharge, denies dry eye, denies irritation, denies itching, denies pain, denies photophobia, denies loss of peripheral vision, denies loss of vision, denies tunnel vision/blind spots Ears: deny: decreased hearing, ear discharge, earache, tinnitus Ears, nose, mouth and throat: Reports as per HPI Breasts: absent: as per HPI, gynecomastia Cardiovascular: Reports as per HPI, Reports decreased exercise tolerance, Reports dyspnea on exertion Respiratory: Reports cough, Reports dyspnea Gastrointestinal: Reports as per HPI Genitourinary: Reports as per HPI Musculoskeletal: Reports as per HPI Musculoskeletal: absent: ankle pain, ankle stiffness, ankle swelling, as per HPI, elbow pain, elbow stiffness, elbow swelling, foot pain, foot stiffness, f oot swelling, hand pain, hand stiffness, hand swelling, hip pain, hip stiffness, hip swelling, knee pain, knee stiffness, knee swelling, shoulder pain, shoulder stiffness, shoulder swelling, wrist pain, wrist stiffness, wrist swelling Integumentary: Reports as per HPI Neurological: Reports as per HPI Psychiatric: Reports as per HPI Endocrine: Reports as per HPI Hematologic/Lymphatic: Reports as per HPI Allergic/Immunologic: Reports as per HPI Past Medical History Past Medical History: Coronary Artery Disease (CAD), COPD, GERD/Reflux, Hyperlipidemia, Hypertension, Myocardial Infarction (NE), Osteoarthritis (OA), Pneumonia, Syncope Additional Past Medical History / Comment(s): mi x2, lt ear tinnitus, "touch of emphysema", chronic lt hip pain, diverticulosis, change in bowel habits, Last Myocardial Infarction Date:: 01-05-95 History of Any Multi-Drug Resistant Organisms: None Reported Past Surgical History: Adenoidectomy, Heart Catheterization, Heart Catheterization With Stent, Orthopedic Surgery, Tonsillectomy Additional Past Surgical History / Comment(s): regina cataracts removed, lt thumb sx to reconnect tendon. 4 heart caths mult sents Past Anesthesia/Blood Transfusion Reactions: No Reported Reaction Additional Past Anesthesia/Blood Transfusion Reaction / Comment(s): No hx of blood transfusion to date. Date of Last Stent Placement:: 01/08/2007 Past Psychological History: No Psychological Hx Reported Smoking Status: Former smoker Past Alcohol Use History: None Reported Past Drug Use History: None Reported - Past Family History Mother Additional Family Medical History / Comment(s): of complications of post op infection after bowel sx Son(s) Family Medical History: Cancer Additional Family Medical History / Comment(s): Pancreatic cancer. Medications and Allergies Home Medications Medication Instructions Recorded Confirmed Type Atorvastatin [Lipitor] 40 mg PO HS 01/29/15 06/12/24 History Metoprolol Tartrate [Lopressor] 25 mg PO DAILY 01/29/15 06/12/24 History Timolol [Betimol 0.5% Ophth Soln] 1 drop BOTH EYES DAILY 01/29/15 06/12/24 History allopurinoL [Zyloprim] 300 mg PO DAILY 01/29/15 06/12/24 History amLODIPine [Norvasc] 5 mg PO DAILY 01/29/15 06/12/24 History lisinopriL [Zestril] 20 mg PO DAILY 01/29/15 06/12/24 History Aspirin [Adult Low Dose Aspirin EC] 81 mg PO DAILY 06/04/20 06/12/24 History Fluticasone/Umeclidin/Vilanter 1 puff INHALATION RT-DAILY 03/23/24 06/12/24 History [Trelegy Ellipta 100-62.5-25] Levofloxacin [Levaquin] 500 mg PO DAILY 06/12/24 06/12/24 History Allergies Allergy/AdvReac Type Severity Reaction Status Date / Time No Known Allergies Allergy Verified 06/12/24 16:46 Physical Exam Vitals: Vital Signs Temp Pulse Pulse Resp BP BP Pulse Ox 06/13/24 09:18 84 06/13/24 09:11 96 06/13/24 09:09 86 06/13/24 07:10 97.5 F L 67 16 125/65 95 06/13/24 02:00 97.3 F L 66 105/48 94 L 06/12/24 19:37 88 06/12/24 19:31 83 06/12/24 19:13 97.6 F 83 19 147/68 95 06/12/24 18:30 99.2 F 83 18 148/88 93 L 06/12/24 17:28 98.0 F 73 20 128/69 94 L 06/12/24 17:19 80 06/12/24 17:06 73 06/12/24 16:22 71 18 134/65 94 L 06/12/24 14:30 20 06/12/24 14:15 98.6 F 84 16 126/61 93 L Intake and Output 06/12/24 06/13/24 06/13/24 22:59 06:59 14:59 Intake Total 150 Balance 150 Intake: Oral 150 Other: Voiding Method Toilet # Voids 2 Weight 65.771 kg The patient appeared well nourished and normally developed. Vital signs as documented. Head exam is unremarkable. No scleral icterus or corneal arcus noted. Neck is without jugular venous distension, thyromegaly, or carotid bruits. Carotid upstrokes are brisk bilaterally. Lungs are clear to auscultation and percussion. Cardiac exam reveals the PMI to be normally sized and situated. Rhythm is regular. First and second heart sounds normal. No murmurs, rubs or gallops. Abdominal exam reveals normal bowel sounds, no masses, no organomegaly and no aortic enlargement. Extremities are nonedematous and both femoral and pedal pulses are normal. Examination of the skin revealed no evidence of significant rashes, suspicious appearing nevi or other concerning lesions. Neurologically, the patient is awake and alert and the patient does not have any focal neurological deficit. Cranial nerves are essentially intact. Results - Laboratory Findings CBC and BMP: 06/13/24 03:34 06/13/24 03:34 PT/INR, D-dimer PT 11.4 sec (10.0-12.5) 06/12/24 14:35 INR 1.0 (<1.2) 06/12/24 14:35 Abnormal lab findings: Abnormal Labs 06/12/24 06/12/24 06/12/24 14:35 14:35 21:45 WBC 13.3 H RBC 4.12 L Hgb 12.9 L Hct 38.7 L Neutrophils # 11.9 H Lymphocytes # 0.4 L Sodium 135 L Carbon Dioxide BUN 31 H Creatinine 1.44 H Est GFR (CKD-EPI) BUN/Creatinine Ratio Glucose 113 H Calcium Total Protein 5.9 L Albumin 3.3 L Albumin/Globulin Ratio Urine Protein 1+ H Urine Blood Trace H Urine RBC 6 H Urine WBC 7 H Urine Bacteria Rare H Urine Mucus Moderate H 06/13/24 06/13/24 03:34 03:34 WBC RBC 3.41 L Hgb 10.6 L Hct 32.3 L Neutrophils # Lymphocytes # Sodium 133 L Carbon Dioxide 21.1 L BUN 33.0 H Creatinine Est GFR (CKD-EPI) 46 L BUN/Creatinine Ratio 22.00 H Glucose 165 H Calcium 8.3 L Total Protein 5.1 L Albumin 2.8 L Albumin/Globulin Ratio 1.22 L Urine Protein Urine Blood Urine RBC Urine WBC Urine Bacteria Urine Mucus - Diagnostic Findings Chest x-ray: image reviewed Assessment and Plan Plan: Left lung pneumonia with a masslike consolidation involving the left upper lobe and a small left-sided pleural effusion. Patient was treated for few days on outpatient basis with Levaquin. Treatment was started on 06/08/2024. The patient's condition decompensated and he presented to the Emergency Department with worsening shortness of breath. Chest x-ray showed worsening in the left jennifer ng pneumonia/consolidation. Accordingly, the patient was hospitalized for IV antibiotics. Currently on a combination of IV Rocephin and Zithromax. Clinically stable. Based on my review of the chest x-ray and based on a previous history of a renal mass, I think a CAT scan of the chest is warranted to rule out any metastatic disease involving the lungs. Acute leukocytosis, improving Shortness of breath acute on chronic, improving we always have a twisted think COPD with a baseline FEV1 of 64% predicted maintained on Trelegy Ellipta on outpatient basis Renal mass, right-sided, measuring 5.0 cm in size, concerning for renal cell carcinoma Acute kidney injury versus chronic kidney disease Coronary artery disease, previous coronary intervention and stenting Hypertension Hyperlipidemia Chronic diastolic heart failure Will see him in a year if people are Diverticulosis Degenerative arthritis Plan The patient is currently on room air oxygen Obtain a noncontrast CAT scan of the chest Awaiting blood cultures Ideally, Rocephin and Zithromax as a similar coverage to Levaquin that the patient received on an outpatient basis. Nevertheless, I am going to continue the same antibiotic coverage as long as the patient is showing signs of improvement. Obtain follow-up chest x-ray in the morning DuoNeb nebulizers [id number] Symbicort 2 puffs twice a day IV Solu-Medrol 60 mg every 6 hours Will continue to follow. Will find out tomorrow With a noncontrast CAT scan imaging
--- NOTE | 2024-06-13 16:42 | P.PN ---
Subjective Progress Note Date: 06/13/24 Patient was seen and examined. Breathing 70% improved. On room air. CBC and CMP significant for RBC 3.41, Hg 10.6, Hct 32.3, Na 133, bicarb 21.1, BUN 33, glu 165, Ca 8.3, alb 2.8. Urine Legionella neg. Most recent BP 125/65, HR 67. General: non toxic, no distress, appears at stated age Derm: warm, dry Head: atraumatic, normocephalic, symmetric Mouth: no lip lesion, mucus membranes moist Cardiovascular: S1S2 reg, no murmur Lungs: Decreased BS bilaterally, no rales , no accessory muscle use Abd: Soft, non tender to palpation Ext: no gross muscle atrophy, no edema, no contractures Neuro: no focal neuro deficits Psych: Alert and oriented. Based on my assessment of this patient, this patient meets a high complexity level of care. Community-acquired pneumonia left lung with masslike consolidation, failed outpatient management with Levaquin COPD/emphysema with mild exacerbation, secondary to above -Pulm consulted, recommend CT chest. -Oxygenation to be administered and titrated as needed to maintain SPO2 equal to or greater than 92% -Telemetry monitoring. -Monitor pulse-oximetry -Duonebs scheduled 4 times daily and as needed for SOB and/or wheezing -Incentive Spirometry -Steroids: Solu-Medrol 60 mg IVP every 6 hours -Antibiotics: Zithromax 500 mg daily and Rocephin 2 g daily. -Sputum culture, and blood culture. -Continue with Symbicort 160-4.5 mcg inhaler 2 puffs twice daily. Acute kidney injury on CKD -Hold lisinopril and patient started on gentle IV fluid hydration with 0.9% norm al saline at 75 cc/h. Will continue to monitor closely with repeat morning labs. CAD status post stenting Hypertension Hyperlipidemia -Lisinopril held secondary to RADHA. Patient to continue aspirin 81 mg daily, amlodipine 5 mg daily, atorvastatin 40 mg nightly, and metoprolol 25 mg daily. Bilateral cataracts status post removal -Continue daily home eyedrops with timolol 1 drop both eyes daily. CODE STATUS: FULL CODE. DVT Prophylaxis: Heparin SQ GI Prophylaxis: Protonix PO Designated medical POA if patient is not able to make medical decisions for themselves: I have reviewed the following senior information security consultant notes: Pulm note. I have reviewed the results of the following tests: CBC, CMP, ULegionella Ag. I have ordered the following tests: I have discussed the care of this patient with the following independent historian: I have independently interpreted the following test below: I have discussed the management of this patient with the following physician: Objective - Vital Signs Vital signs: Vital Signs Temp 97.5 F L 06/13/24 07:10 Pulse 78 06/13/24 16:11 Resp 16 06/13/24 07:10 BP 125/65 06/13/24 07:10 Pulse Ox 96 06/13/24 09:11 FiO2 Intake & Output 06/12/24 06/13/24 06/13/24 18:59 06:59 18:59 Intake Total 150 Balance 150 Weight 65.771 kg 65.771 kg Intake: Oral 150 Other: Voiding Method Toilet # Voids 2 - Labs CBC & Chem 7: 06/13/24 03:34 06/13/24 03:34 Labs: Abnormal Lab Results - Last 24 Hours (Table) 06/12/24 06/13/24 06/13/24 Range/Units 21:45 03:34 03:34 RBC 3.41 L (4.40-5.60) X 10*6/uL Hgb 10.6 L (13.0-17.0) g/dL Hct 32.3 L (39.6-50.0) % Sodium 133 L (135-145) mmol/L Carbon Dioxide 21.1 L (21.6-31.8) mmol/L BUN 33.0 H (9.0-27.0) mg/dL Est GFR (CKD-EPI) 46 L (>=60) BUN/Creatinine Ratio 22.00 H (12.00-20.00) Ratio Glucose 165 H (70-110) mg/dL Calcium 8.3 L (8.7-10.3) mg/dL Total Protein 5.1 L (6.2-8.2) g/dL Albumin 2.8 L (3.8-4.9) g/dL Albumin/Globulin Ratio 1.22 L (1.60-3.17) Ratio Urine Protein 1+ H (Negative) Urine Blood Trace H (Negative) Urine RBC 6 H (0-5) /hpf Urine WBC 7 H (0-5) /hpf Urine Bacteria Rare H (None) /hpf Urine Mucus Moderate H (None) /hpf
[2024-06-13] MEDS: AZITHROMYCIN 500 MG in SODIUM CHLORIDE 0.9% 250 ML IVPB SCH (18:26)
--- NOTE | 2024-06-13 21:26 | CT ---
EXAMINATION TYPE: CT chest wo con DATE OF EXAM: 06/13/2024 9:02 PM COMPARISON: 01/27/2024 CLINICAL INDICATION: Male, 83 years old with history of Rule out mets; [facility], JENNIFER, abnormal chest xray. r/o mets TECHNIQUE: Multiple axial images were obtained through the chest. Sagittal and coronal reformats were created for review. MIP was performed on a separate workstation. Contrast used: mL of (None if empty) Oral contrast used: (None if empty) CT DLP: 302.4 mGycm, Automated exposure control for dose reduction was used. FINDINGS: LUNGS/ PLEURA: No focal consolidation, pneumothorax or pleural effusion. Left lower lobe superior seg ment 5.0 x 3.7 cm mass. There is small moderate left pleural effusion. Right midlung pulmonary nodule measuring 5 mm series 201 image 79. Moderate to severe emphysema changes. AIRWAY: Patent and unremarkable. HEART: Trace cardiopericardial effusion. Size within normal limits. Severe coronary artery calcificat ions present. MEDIASTINUM: No gross evidence of adenopathy. Pulmonary hilum is poorly evaluated due to lack of contrast. VASCULATURE: No aortic aneurysm. MUSCULOSKELETAL: No acute osseous abnormalities SOFT TISSUES/LYMPH NODES: Unremarkable. LOWER NECK: No significant findings. UPPER ABDOMEN: No significant findings. IMPRESSION: 1. Left lower lobe superior segment pulmonary mass compatible with malignancy. Unclear if this is se condary malignancy from suspected renal cell carcinoma or new primary. Evaluation of the pulmonary hi lum is limited due to lack of contrast. Follow-up PET/CTs recommended. 2. Severe coronary artery atherosclerosis. [facility], , 06/13/2024 9:24 PM
[2024-06-14] MEDS: PANTOPRAZOLE 40 MG TABLET PO SCH (06:30)
--- NOTE | 2024-06-14 07:23 | XR ---
EXAMINATION TYPE: XR chest 1V portable DATE OF EXAM: 06/14/2024 6:56 AM COMPARISON: 06/12/2024 CLINICAL INDICATION: Male, 83 years old with history of shortness of breath, , FINDINGS: Similar hyperinflation and borderline heart size. Small left pleural effusion with adjacent patchy le ft basilar opacity persists. Masslike left perihilar opacity also persists. IMPRESSION: 1. No mass left perihilar region. 2. Otherwise, background COPD with similar small left pleural effusion and adjacent patchy opacity. C orrelate to exclude pneumonia. [facility], Workstation: [email or web address], 06/14/2024 7:21 AM
--- NOTE | 2024-06-14 11:46 | P.PN ---
Subjective Progress Note Date: 06/14/24 Patient was seen and examined. Breathing stable but feeling short of breath with ambulation. On room air. CT chest done yesterday showing concerns for LLL consolidation compatible with malignancy. BCx prelim neg. Most recent BP 130/53, HR 70. General: non toxic, no distress, appears at stated age Derm: warm, dry Head: atraumatic, normocephalic, symmetric Mouth: no lip lesion, mucus membranes moist Cardiovascular: S1S2 reg, no murmur Lungs: Decreased BS bilaterally, no rales , no accessory muscle use Ext: no gross muscle atrophy, no edema, no contractures Neuro: no focal neuro deficits Psych: Alert and oriented. Based on my assessment of this patient, this patient meets a high complexity level of care. Community-acquired pneumonia left lung with masslike consolidation, failed outpatient management with Levaquin COPD/emphysema with mild exacerbation, secondary to above -Pulm consulted, CT chest showing concerns for malignancy, awaiting recommendations -Oxygenation to be administered and titrated as needed to maintain SPO2 equal to or greater than 92% -Telemetry monitoring. -Monitor pulse-oximetry -Duonebs scheduled 4 times daily and as needed for SOB and/or wheezing -Incentive Spirometry -Steroids: Solu-Medrol 60 mg IVP every 6 hours -Antibiotics: Zithromax 500 mg daily and Rocephin 2 g daily. -Sputum culture, and blood culture. -Continue with Symbicort 160-4.5 mcg inhaler 2 puffs twice daily. Acute kidney injury on CKD -Hold lisinopril and patient started on gentle IV fluid hydration with 0.9% normal saline at 75 cc/h. CAD status post stenting Hypertension Hyperlipidemia -Lisinopril held secondary to RADHA. Patient to continue aspirin 81 mg daily, amlodipine 5 mg daily, atorvastatin 40 mg nightly, and metoprolol 25 mg daily. Bilateral cataracts status post removal -Continue daily home eyedrops with timolol 1 drop both eyes daily. CODE STATUS: FULL CODE. DVT Prophylaxis: Heparin SQ GI Prophylaxis: Protonix PO Designated medical POA if patient is not able to make medical decisions for themselves: I have reviewed the following talent acquisition consultant notes: Pulm note. I have reviewed the results of the following tests: CT chest. I have ordered the following tests: I have discussed the care of this patient with the following independent historian: MATTHEW. I have independently interpreted the following test below: CXR. I have discussed the management of this patient with the following physician: Objective - Vital Signs Vital signs: Vital Signs Temp 98.2 F 06/14/24 07:07 Pulse 68 06/14/24 11:36 Resp 16 06/14/24 08:35 BP 130/53 06/14/24 07:07 Pulse Ox 96 06/14/24 08:28 FiO2 Intake & Output 06/13/24 06/14/24 06/14/24 18:59 06:59 18:59 Intake Total 150 600 Balance 150 600 Weight 65.771 kg Intake: Oral 150 600 Other: Voiding Method Toilet Toilet # Voids 2 2 - Labs CBC & Chem 7: 06/13/24 03:34 06/13/24 03:34 Labs: Microbiology - Last 24 Hours (Table) 06/12/24 14:35 Blood Culture - Preliminary Blood
--- NOTE | 2024-06-14 14:12 | US ---
EXAMINATION TYPE: US chest DATE OF EXAM: 06/14/2024 COMPARISON: XR(Today) CLINICAL INDICATION: Male, 83 years old with history of left effusion; TECHNIQUE: Grayscale imaging of the chest. Targeted ultrasound of the posterior lower left hemithora x FINDINGS: EXAM MEASUREMENTS: Left Pleural Effusion pocket size: 11.1 Left skin surface to fluid distance: 2.5cm Fluid to lung tissue: 4.3cm Left side marked for possible thoracentesis outside the dept. Pulmonologists are able to review the images in the patient?s EMR. IMPRESSIONS: Small to moderate sized left pleural effusion with marking performed. [facility], Workstation: [id number], 06/14/2024 2:09 PM
--- NOTE | 2024-06-14 16:10 | P.PN ---
Subjective Progress Note Date: 06/14/24 This is a 83-year-old male patient, who was hospitalized for an extensive left lung pneumonia. The patient is known to have COPD, and he has been followed up by Dr. Lopez on outpatient basis. The patient remains on Trelegy Ellipta 100 mcg 1 puff a day and albuterol nebulizer treatments on 828 basis. The patient is known to have an FEV1 of 62% of predicted at baseline. The patient was seen in the office on 06/08/2024 and he was complaining of 1 week history of cough and brownish sputum production. Denies having any fever and he was having some chills. A chest x-ray was done in the office on 06/08/2024 and the chest x-ray showed COPD with some minimal left midlung pulmonary infiltrates. The patient was given Levaquin and a prednisone burst taper. Patient's condition decompensated the patient came into the Emergency Department with worsening shortness of breath. He denied having any pleurisy. No hemoptysis. The reported fevers and the temperature was as high as 101 and the patient was getting progressively weak. In the emergency department, the patient had a pulse ox of 93% room air oxygen. He was afebrile and hemodynamically stable. A repeat chest x-ray was done and there was significant progression in the pneumonia and the patient was found to have an extensive masslike consolidation involving the left lung along with a small left-sided pleural effusion. Based on that, the patient was hospitalized. He is currently on a combination of IV Rocephin and Zithromax. He is on DuoNeb nebulizers [id number] and IV Solu-Medrol. Blood cultures were sent and the results are still pending for now. The white cell count is currently at 6.6 dropped from 13.3. His e lectrolytes are normal. He is viral screen came back negative. Legionella urine antigen came back negative. Liver function studies are essentially within normal limits. Blood sugar is slightly elevated. Clinically, he is awake and alert and communicating. He remains on room air oxygen. Overall, feeling better compared to yesterday. On 06/14/2024, the patient's condition is stable. No significant cough. He is stating that he has brought up some mild amount of sputum. He remains on a comb ination of Rocephin and Zithromax. The white cell count is currently down to 6.6. Electrolytes are stable. BUN is 33 mg and 1.5. Noted, I performed a CAT scan on this patient yesterday. CAT scan showed a masslike consolidation measuring 5 x 3.7 cm in size in the left lower lobe. There is also a small left-sided pleural effusion that has developed. Obviously, this was reported as a mass. I do appreciate some air bronchograms within this area of consolidation. Possibility of pneumonia cannot be completely excluded. Patient was made aware. Will continue to follow. Continue antibiotics. Bronchoscopy and biopsy of the consolidating mass in the left lower lobe if no change. Objective - Vital Signs Vital signs: Vital Signs Temp 98.2 F 06/14/24 07:07 Pulse 64 06/14/24 11:49 Resp 16 06/14/24 08:35 BP 130/53 06/14/24 07:07 Pulse Ox 96 06/14/24 08:28 FiO2 Intake & Output 06/13/24 06/14/24 06/14/24 18:59 06:59 18:59 Intake Total 150 600 Balance 150 600 Weight 65.771 kg Intake: Oral 150 600 Other: Voiding Method Toilet Toilet # Voids 2 2 - Exam The patient appeared well nourished and normally developed. Vital signs as documented. Head exam is unremarkable. No scleral icterus or corneal arcus noted. Neck is without jugular venous distension, thyromegaly, or carotid bruits. Carotid upstrokes are brisk bilaterally. Lungs are clear to auscultation and percussion. Cardiac exam reveals the PMI to be normally sized and situated. Rhythm is regular. First and second heart sounds normal. No murmurs, rubs or gallops. Abdominal exam reveals normal bowel sounds, no masses, no organomegaly and no aortic enlargement. Extremities are nonedematous and both femoral and pedal pulses are normal. Examination of the skin revealed no evidence of significant rashes, suspicious appearing nevi or other concerning lesions. Neurologically, the patient is awake and alert and the patient does not have any focal neurological deficit. Cranial nerves are essentially intact. - Labs CBC & Chem 7: 06/13/24 03:34 06/13/24 03:34 Labs: Microbiology - Last 24 Hours (Table) 06/12/24 14:35 Blood Culture - Preliminary Blood Assessment and Plan Plan: Left lung pneumonia with a masslike consolidation involving the left upper lobe and a small left-sided pleural effusion. Patient was treated for few days on outpatient basis with Levaquin. Treatment was started on 06/08/2024. The patient's condition decompensated and he presented to the Emergency Department with worsening shortness of breath. Chest x-ray showed worsening in the left lung pneumonia/consolidation. Accordingly, the patient was hospitalized for IV antibiotics. Currently on a combination of IV Rocephin and Zithromax. Clinical ly stable. CAT scan of the chest showed a consolidating mass in the left lower lobe. Limited air bronchograms. This could be a pneumonia representing is a consolidating mass versus a true tumor. There is also a small left-sided pleural effusion. Acute leukocytosis, improving Shortness of breath acute on chronic, improving we always have a twisted think COPD with a baseline FEV1 of 64% predicted maintained on Trelegy Ellipta on outpatient basis Renal mass, right-sided, measuring 5.0 cm in size, concerning for renal cell carcinoma Acute kidney injury versus chronic kidney disease Coronary artery disease, previous coronary intervention and stenting Hypertension Hyperlipidemia Chronic diastolic heart failure Will see him in a year if people are Diverticulosis Degenerative arthritis Plan Obtain a follow-up chest x-ray in the morning The patient is currently on room air oxygen CAT scan of the chest was noted Ideally, Rocephin and Zithromax as a similar coverage to Levaquin that the patient received on an outpatient basis. Nevertheless, I am going to continue the same antibiotic coverage as long as the patient is showing signs of improvement. If the chest x-ray findings remains unchanged, the patient will need a bronchoscopy and a biopsy in the future. Will obtain ultrasound of the chest and marked left-sided pleural effusion. Consider thoracentesis if there is any sizable effusion on the left. DuoNeb nebulizers [id number] Symbicort 2 puffs twice a day IV Solu-Medrol 60 mg every 6 hours Will continue to follow. Results of the CAT scan of the chest was explained to the patient at length.
[2024-06-15 05:09] LABS: HCT 34.4 % (39.0-53.0); HGB 11.4 gm/dL (13.0-17.5); Hypochromasia Slight; MCH 31.6 pg (25.0-35.0); MCHC 33.2 g/dL (31.0-37.0); MCV 95.1 fL (80.0-100.0); Mean Platelet Volume 7.7; Platelet Count 266 k/uL (150-450); RBC 3.62 m/uL (4.30-5.90); WBC 18.9 k/uL (3.8-10.6)
[2024-06-15 05:19] LABS: African American GFR (CKD) 56 (>60 ml/min/1.73 sqM); Anion Gap 9 mmol/L; Blood Urea Nitrogen 47 mg/dL (9-20); Calcium 8.6 mg/dL (8.4-10.2); Carbon Dioxide 20 mmol/L (22-30); Chloride 105 mmol/L (98-107); Glucose 119 mg/dL (74-99); Non-African American GFR(CKD) 49 (>60 ml/min/1.73 sqM); Potassium 4.7 mmol/L (3.5-5.1); Sodium 134 mmol/L (137-145)
--- NOTE | 2024-06-15 11:20 | P.PN ---
Subjective Progress Note Date: 06/15/24 Patient was seen and examined. Breathing stable but feeling short of breath with ambulation. On room air. Chest US shows moderate pleural effusion. CBC and BMP significant for WBC 18.9, RBC 3.62, Hg 11.4, Hct 34.4, Na 134, bicarb 20, BUN 47, Cr 1.34, glu 119. Discussed with Dr. Dyer, likely PNA, no current plans for inpatient bronchoscopy, plans for thoracentesis today. Most recent BP 148/67, HR 65. General: non toxic, no distress, appears at stated age Derm: warm, dry Head: atraumatic, normocephalic, symmetric Mouth: no lip lesion, mucus membranes moist Cardiovascular: S1S2 reg, no murmur Lungs: Decreased BS bilaterally, no rales , no accessory muscle use Ext: no gross muscle atrophy, no edema, no contractures Neuro: no focal neuro deficits Psych: Alert and oriented. Based on my assessment of this patient, this patient meets a high complexity level of care. Community-acquired pneumonia left lung with masslike consolidation, failed outpatient management with Levaquin Pleural effusion COPD/emphysema with mild exacerbation, secondary to above -Pulm consulted, CT chest showing concerns for malignancy, chest US with pleural effusion, plans for thoracentesis today -Oxygenation to be administered and titrated as needed to maintain SPO2 equal to or greater than 92% -Telemetry monitoring. -Monitor pulse-oximetry -Duonebs scheduled 4 times daily and as needed for SOB and/or wheezing -Incentive Spirometry -Steroids: Solu-Medrol 60 mg IVP every 6 hours -Antibiotics: Zithromax 500 mg daily and Rocephin 2 g daily. -Sputum culture, and blood culture. -Continue with Symbicort 160-4.5 mcg inhaler 2 puffs twice daily. Acute kidney injury on CKD -Hold lisinopril and patient started on gentle IV fluid hydration with 0.9% normal saline at 75 cc/h. CAD status post stenting Hypertension Hyperlipidemia -Lisinopril held secondary to RADHA. Patient to continue aspirin 81 mg daily, am lodipine 5 mg daily, atorvastatin 40 mg nightly, and metoprolol 25 mg daily. Bilateral cataracts status post removal -Continue daily home eyedrops with timolol 1 drop both eyes daily. CODE STATUS: FULL CODE. DVT Prophylaxis: Heparin SQ GI Prophylaxis: Protonix PO Designated medical POA if patient is not able to make medical decisions for themselves: I have reviewed the following [employer] sales consultant notes: Pulm note. I have reviewed the results of the following tests: Chest US. I have ordered the following tests: CBC, BMP. I have discussed the care of this patient with the following independent hist orian: I have independently interpreted the following test below: Chest CT I have discussed the management of this patient with the following physician: Dr. Dyer Objective - Vital Signs Vital signs: Vital Signs Temp 97.5 F L 06/15/24 07:07 Pulse 66 06/15/24 09:17 Resp 18 06/15/24 07:07 BP 148/67 06/15/24 07:07 Pulse Ox 92 L 06/15/24 09:07 FiO2 Intake & Output 06/14/24 06/15/24 06/15/24 18:59 06:59 18:59 Intake Total 1000 Balance 1000 Intake: Oral 1000 Other: Voiding Method Toilet Toilet # Voids 3 2 - Labs CBC & Chem 7: 06/15/24 04:48 06/15/24 04:48 Labs: Abnormal Lab Results - Last 24 Hours (Table) 06/15/24 06/15/24 Range/Units 04:48 04:48 WBC 18.9 H (3.8-10.6) k/uL RBC 3.62 L (4.30-5.90) m/uL Hgb 11.4 L (13.0-17.5) gm/dL Hct 34.4 L (39.0-53.0) % Sodium 134 L (137-145) mmol/L Carbon Dioxide 20 L (22-30) mmol/L BUN 47 H (9-20) mg/dL Creatinine 1.34 H (0.66-1.25) mg/dL Glucose 119 H (74-99) mg/dL Microbiology - Last 24 Hours (Table) 06/12/24 14:35 Blood Culture - Preliminary Blood
--- NOTE | 2024-06-15 16:54 | XR ---
EXAMINATION TYPE: XR chest 1V DATE OF EXAM: 06/15/2024 4:43 PM COMPARISON: Chest radiographs from 06/14/2024, CT chest 06/13/2024 TECHNIQUE: XR chest 1V Frontal view of the chest. CLINICAL INDICATION:Male, 83 years old with history of post thoracentesis; FINDINGS: Lungs/Pleura: Decrease in small left pleural effusion status post thoracentesis. There is associated atelectasis. Left mid lung perihilar 6.1 cm mass redemonstrated . No pneumothorax. Hyperinflation. Pulmonary vascularity: Unremarkable. Heart/mediastinum: Cardiomediastinal silhouette is prominent in size. Atherosclerotic calcifications are seen in the aorta. Musculoskeletal: No acute osseous pathology. IMPRESSION: 1. Decreased small left pleural effusion with associated atelectasis status post thoracentesis. No p neumothorax. 2. Redemonstration of left midlung pulmonary mass concerning for malignancy. 3. COPD changes. [facility], , 06/15/2024 4:52 PM
[2024-06-15 21:36] LABS: Glucose, BF Source Pleural Fluid; Glucose, Body Fluid 144 mg/dL; LDH, Body Fluid Source Pleural Fluid; T. Protein, Body Fluid Source Pleural Fluid; Total Protein, Body Fluid 2460 mg/dL
[2024-06-15 21:52] LABS: Appearance,BF Hazy (Clear)
--- NOTE | 2024-06-15 23:16 | P.PN ---
Subjective Progress Note Date: 06/15/24 This is a 83-year-old male patient, who was hospitalized for an extensive left lung pneumonia. The patient is known to have COPD, and he has been followed up by Dr. Lopez on outpatient basis. The patient remains on Trelegy Ellipta 100 mcg 1 puff a day and albuterol nebulizer treatments on 828 basis. The patient is known to have an FEV1 of 62% of predicted at baseline. The patient was seen in the office on 06/08/2024 and he was complaining of 1 week history of cough and brownish sputum production. Denies having any fever and he was having some chills. A chest x-ray was done in the office on 06/08/2024 and the chest x-ray showed COPD with some minimal left midlung pulmonary infiltrates. The patient was given Levaquin and a prednisone burst taper. Patient's condition decompensated the patient came into the Emergency Department with worsening shortness of breath. He denied having any pleurisy. No hemoptysis. The reported fevers and the temperature was as high as 101 and the patient was getting progressively weak. In the emergency department, the patient had a pulse ox of 93% room air oxygen. He was afebrile and hemodynamically stable. A repeat chest x-ray was done and there was significant progression in the pneumonia and the patient was found to have an extensive masslike consolidation involving the left lung along with a small left-sided pleural effusion. Based on that, the patient was hospitalized. He is currently on a combination of IV Rocephin and Zithromax. He is on DuoNeb nebulizers [id number] and IV Solu-Medrol. Blood cultures were sent and the results are still pending for now. The white cell count is currently at 6.6 dropped from 13.3. His e lectrolytes are normal. He is viral screen came back negative. Legionella urine antigen came back negative. Liver function studies are essentially within normal limits. Blood sugar is slightly elevated. Clinically, he is awake and alert and communicating. He remains on room air oxygen. Overall, feeling better compared to yesterday. On 06/14/2024, the patient's condition is stable. No significant cough. He is stating that he has brought up some mild amount of sputum. He remains on a comb ination of Rocephin and Zithromax. The white cell count is currently down to 6.6. Electrolytes are stable. BUN is 33 mg and 1.5. Noted, I performed a CAT scan on this patient yesterday. CAT scan showed a masslike consolidation measuring 5 x 3.7 cm in size in the left lower lobe. There is also a small left-sided pleural effusion that has developed. Obviously, this was reported as a mass. I do appreciate some air bronchograms within this area of consolidation. Possibility of pneumonia cannot be completely excluded. Patient was made aware. Will continue to follow. Continue antibiotics. Bronchoscopy and biopsy of the consolidating mass in the left lower lobe if no change. On 06/15/2024, the patient is being seen for a follow-up. The patient is doing well. No specific complaints. This afternoon, I performed a thoracentesis on the patient's left lung. I was able to aspirate a total of 500 cc of pleural fluid and aspiration was done successfully without any complications. Nev ertheless, the follow-up chest x-ray shows a persistent left midlung lung mass which remains essentially unchanged. The patient is still on IV Rocephin. Remains above evaluated. Remains on steroids. The white cell count is at 18.9 with a hemoglobin 11.4 and a platelet count of 266. BUN is 47 with a creatinine 1.34. Sodium is at 134 with a potassium level of 4.7. Procalcitonin level is at 0.3. Pleural fluid analysis showed an LDH level of 2 1 and a total protein of 2.4. Based on the protein analysis, the patient has a transudate. Objective - Vital Signs Vital signs: Vital Signs Temp 98.1 F 06/15/24 19:15 Pulse 64 06/15/24 20:13 Resp 18 06/15/24 19:15 BP 130/58 06/15/24 19:15 Pulse Ox 98 06/15/24 19:15 FiO2 Intake & Output 06/15/24 06/15/24 06/16/24 06:59 18:59 06:59 Intake Total 1000 Balance 1000 Intake: Oral 1000 Other: Voiding Method Toilet Toilet # Voids 2 3 - Exam The patient appeared well nourished and normally developed. Vital signs as documented. Head exam is unremarkable. No scleral icterus or corneal arcus noted. Neck is without jugular venous distension, thyromegaly, or carotid bruits. Ca rotid upstrokes are brisk bilaterally. Lungs are clear to auscultation and percussion. Cardiac exam reveals the PMI to be normally sized and situated. Rhythm is regular. First and second heart sounds normal. No murmurs, rubs or gallops. Abdominal exam reveals normal bowel sounds, no masses, no organomegaly and no aortic enlargement. Extremities are nonedematous and both femoral and pedal pulses are normal. Examination of the skin revealed no evidence of significant rashes, suspicious appearing nevi or other concerning lesions. Neurologically, the patient is awake and alert and the patient does not have any focal neurological deficit. Cranial nerves are essentially intact. - Labs CBC & Chem 7: 06/15/24 04:48 06/15/24 04:48 Labs: Abnormal Lab Results - Last 24 Hours (Table) 06/15/24 06/15/24 06/15/24 Range/Units 00:00 04:48 04:48 WBC 18.9 H (3.8-10.6) k/uL RBC 3.62 L (4.30-5.90) m/uL Hgb 11.4 L (13.0-17.5) gm/dL Hct 34.4 L (39.0-53.0) % Sodium 134 L (137-145) mmol/L Carbon Dioxide 20 L (22-30) mmol/L BUN 47 H (9-20) mg/dL Creatinine 1.34 H (0.66-1.25) mg/dL Glucose 119 H (74-99) mg/dL Fluid Appearance Hazy A (Clear) Microbiology - Last 24 Hours (Table) 06/12/24 14:35 Blood Culture - Preliminary Blood Assessment and Plan Plan: Left lung pneumonia with a masslike consolidation involving the left upper lobe and a small left-sided pleural effusion. Patient was treated for few days on outpatient basis with Levaquin. Treatment was started on 06/08/2024. The patient's condition decompensated and he presented to the Emergency Department with worsening shortness of breath. Chest x-ray showed worsening in the left lung pneumonia/consolidation. Accordingly, the patient was hospitalized for IV antibiotics. Currently on a combination of IV Rocephin. Clinically stable. CAT scan of the chest showed a consolidating mass in the left lower lobe. Limited air bronchograms. This could be a pneumonia representing is a consolidating mass versus a true tumor. There is also a small left-sided pleural effusion. Thoracentesis of the left lung was done and a total of 500 cc of pleural fluid was aspirated. Likely a transudate based on the protein criteria. No pneumothorax postthoracentesis. Nevertheless, there is a persistent left midlung masslike consolidation. Possibility of pneumonia versus malignancy. Acute leukocytosis, improving Shortness of breath acute on chronic, improving we always have a twisted think COPD with a baseline FEV1 of 64% predicted maintained on Trelegy Ellipta on outpatient basis Renal mass, right-sided, measuring 5.0 cm in size, concerning for renal cell carcinoma Acute kidney injury versus chronic kidney disease Coronary artery disease, previous coronary intervention and stenting Hypertension Hyperlipidemia Chronic diastolic heart failure Diverticulosis Degenerative arthritis Plan Chest x-ray findings is unchanged regarding the left midlung masslike consolidation. Rule out malignancy. The patient is currently on room air oxygen CAT scan of the chest was noted Continue IV Rocephin If the chest x-ray findings remains unchanged, the patient will need a bronchoscopy and a biopsy in the future. Will be awaiting pleural fluid cytology DuoNeb nebulizers [id number] Symbicort 2 puffs twice a day IV Solu-Medrol 60 mg every 6 hours, start prednisone burst taper within next 24 hours Will continue to follow. Time with Patient: Greater than 30
--- NOTE | 2024-06-15 23:17 | P.PCN ---
Date of Procedure: 06/15/24 Preoperative Diagnosis: Left pleural effusion Postoperative Diagnosis: Left pleural effusion Procedure(s) Performed: Ultrasound-guided thoracentesis Anesthesia: local Surgeon: Cale Dyer Estimated Blood Loss (ml): 0 Pathology: other Condition: stable Disposition: floor Operative Findings: Procedure was done with ultrasound guidance. The left sided pleural effusion was identified and marked. A time out was performed and the chest x-ray was reviewed, the appropriate side was confirmed and marked. My hands were washed immediately prior to the procedure. I wore a surgical cap, mask with protective eyewear, sterile gown and sterile gloves throughout the procedure. The patient was prepped and draped in a sterile manner using chlorhexidine scrub after the appropriate level was percussed and confirmed by ultrasound. 1% lidocaine was used to anesthesize the skin, subcutaneous tissue, superior aspect of the rib periosteum and parietal pleura. A finder needle was then introduced over the superior aspect of the rib to locate the pleural fluid; 2colored fluid was aspirated at a depth of approximately 2 cm. A 10-blade scalpel was used to merlyn the skin at the insertion site. The [id number] needle was then introduced through the skin incision into the pleural space using negative aspiration pressure and the red colometric indicator to confirm appropriate positioning of the needle. The thoracentesis catheter was then threaded without difficulty. 500 ml of turbid colored fluid was removed without difficulty. The catheter was then removed. No immediate complications were noted during the procedure. A post-procedure chest x-ray is pending at the time of this note. The fluid will ---- be sent for studies. Estimated blood loss is 0cc
--- NOTE | 2024-06-16 12:40 | P.DS ---
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 Patient follows with trigonometry teacher Dr. Lobo and sanitarian Dr. Monsivais. He presented to the emergency department with a chief complaint of shortness of breath and nonproductive cough. Patient reports the symptoms began approximately 6-7 days ago so he went to see his sanitarian Dr. Monsivais on , 06/01/2024 and was diagnosed with pneumonia and started on oral antibiotic with Levaquin. Patient reports he is taking antibiotic as prescribed but continues to have persistent and somewhat worsening shortness of breath and intractable coarse cough. Patient's at bedside reports he had fevers x 2 days with highest temp at home being 101 F. Patient admits to chest pain with coughing but currently denies having chest pain at rest. He denies having any headache, lightheadedness, dizziness, diaphoresis, palpitations, nausea, vomiting, or experiencing any numbness/tingling/weakness/swelling in his extremities. Upon arrival to our facility, patient underwent evaluation in the emergency department. Vital signs upon arrival show BP 126/61, HR 84, RR 16, T 98.6 F, and SpO2 of 93% on RA. EKG completed showing normal sinus rhythm at 74 bpm. Chest x-ray revealing left-sided masslike consolidation. Labs completed and reviewed. CBC showing leukocytosis with WBC count of 13.3 and normocytic anemia with hemoglobin of 12.9. Coagulation profile normal findings. BMP showing acute kidney injury with BUN of 31, creatinine 1.44, GFR 44 with baseline creatinine of 0.9. Magnesium 2.0. Liver profile unremarkable with exception of low total protein of 5.9 and albumin of 3.3. Influenza A, influenza B, RSV, COVID PCR negative. Patient admitted under our services with consultation to pulmonology. Started on Rocephin and Azithromycin, bronchodilators and SoluMedrol. Pulmonary consulted, recommended CT chest done yesterday showing concerns for LLL consolidation compatible with malignancy. Underwent thoracentesis on 06/15 with removal of 500 cc fluid from the left lung. 06/16 Patient was seen and examined. Passed his home O2 eval. Discussed with VENICE Vargas for discharge on PO antibiotics, needs follow up with Pulmonary for repeat imaging and possible bronchoscopy down the road. Discharge Plan: Ceftin 500 mg PO BID x 10 days. Albuterol INH PRN and Prednisone taper prescribed to pharmacy. Follow up with PCP within 1-2 days and Pulmonary within 1 week of discharge. General: non toxic, no distress, appears at stated age Derm: warm, dry Head: atraumatic, normocephalic, symmetric Mouth: no lip lesion, mucus membranes moist Cardiovascular: S1S2 reg, no murmur Lungs: Decreased BS bilaterally, no rales , no accessory muscle use Ext: no gross muscle atrophy, no edema, no contractures Neuro: no focal neuro deficits Psych: Alert and oriented. Discharge Diagnosis: Community-acquired pneumonia left lung with masslike consolidation, failed outpatient management with Levaquin Pleural effusion COPD/emphysema with mild exacerbation, secondary to above Acute kidney injury on CKD CAD status post stenting Hypertension Hyperlipidemia Bilateral cataracts status post removal This complex discharge took 35 minutes to complete. Patient Condition at Discharge: Stable Plan - Discharge Summary Discharge Rx Participant: No New Discharge Prescriptions: New cefuroxime axetiL [Ceftin] 500 mg PO BID #20 tab Albuterol Inhaler [Ventolin Hfa Inhaler] 2 puff INHALATION Q6H PRN #1 each PRN Reason: Shortness Of Breath Or Wheezing predniSONE See Taper PO DIRECTED #18 tab Pantoprazole [Protonix] 40 mg PO AC-BRKFST #30 tab Acetaminophen Tab [Tylenol] 650 mg PO Q4HR PRN tab PRN Reason: Mild Pain Or Fever > 100.5 Continue lisinopriL [Zestril] 20 mg PO DAILY Atorvastatin [Lipitor] 40 mg PO HS allopurinoL [Zyloprim] 300 mg PO DAILY amLODIPine [Norvasc] 5 mg PO DAILY Metoprolol Tartrate [Lopressor] 25 mg PO DAILY Timolol [Betimol 0.5% Ophth Soln] 1 drop BOTH EYES DAILY Fluticasone/Umeclidin/Vilanter [Trelegy Ellipta 100-62.5-25] 1 puff INHALATION RT-DAILY Aspirin [Adult Low Dose Aspirin EC] 81 mg PO DAILY Discontinued Levofloxacin [Levaquin] 500 mg PO DAILY Discharge Medication List Atorvastatin [Lipitor] 40 mg PO HS 01/29/15 [History] Metoprolol Tartrate [Lopressor] 25 mg PO DAILY 01/29/15 [History] Timolol [Betimol 0.5% Ophth Soln] 1 drop BOTH EYES DAILY 01/29/15 [History] allopurinoL [Zyloprim] 300 mg PO DAILY 01/29/15 [History] amLODIPine [Norvasc] 5 mg PO DAILY 01/29/15 [History] lisinopriL [Zestril] 20 mg PO DAILY 01/29/15 [History] Aspirin [Adult Low Dose Aspirin EC] 81 mg PO DAILY 06/04/20 [History] Fluticasone/Umeclidin/Vilanter [Trelegy Ellipta 100-62.5-25] 1 puff INHALATION RT-DAILY 03/23/24 [History] Acetaminophen Tab [Tylenol] 650 mg PO Q4HR PRN tab 06/16/24 [Rx] Albuterol Inhaler [Ventolin Hfa Inhaler] 2 puff INHALATION Q6H PRN #1 each 06/16/24 [Rx] Pantoprazole [Protonix] 40 mg PO AC-BRKFST #30 tab 06/16/24 [Rx] cefuroxime axetiL [Ceftin] 500 mg PO BID #20 tab 06/16/24 [Rx] predniSONE See Taper PO DIRECTED #18 tab 06/16/24 [Rx] Follow up Appointment(s)/Referral(s): Jr Lopez MD [STAFF PHYSICIAN] - 1 Week None,Stated [Primary Care Provider] - 1-2 days Patient Instructions/Handouts: COPD (Chronic Obstructive Pulmonary Disease) (DC), Community Acquired Pneumonia (DC) Discharge Disposition: HOME SELF-CARE
[2024-06-16 14:03] VITALS: PULSE 70
[2024-06-16 14:05] VITALS: BP 130/78; RESP 19; TEMP 98
--- NOTE | 2024-06-16 17:48 | P.PN ---
Subjective Progress Note Date: 06/16/24 This is a 83-year-old male patient, who was hospitalized for an extensive left lung pneumonia. The patient is known to have COPD, and he has been followed up by Dr. Lopez on outpatient basis. The patient remains on Trelegy Ellipta 100 mcg 1 puff a day and albuterol nebulizer treatments on 828 basis. The patient is known to have an FEV1 of 62% of predicted at baseline. The patient was seen in the office on 06/08/2024 and he was complaining of 1 week history of cough and brownish sputum production. Denies having any fever and he was having some chills. A chest x-ray was done in the office on 06/08/2024 and the chest x-ray showed COPD with some minimal left midlung pulmonary infiltrates. The patient was given Levaquin and a prednisone burst taper. Patient's condition decompensated the patient came into the Emergency Department with worsening shortness of breath. He denied having any pleurisy. No hemoptysis. The reported fevers and the temperature was as high as 101 and the patient was getting progressively weak. In the emergency department, the patient had a pulse ox of 93% room air oxygen. He was afebrile and hemodynamically stable. A repeat chest x-ray was done and there was significant progression in the pneumonia and the patient was found to have an extensive masslike consolidation involving the left lung along with a small left-sided pleural effusion. Based on that, the patient was hospitalized. He is currently on a combination of IV Rocephin and Zithromax. He is on DuoNeb nebulizers [id number] and IV Solu-Medrol. Blood cultures were sent and the results are still pending for now. The white cell count is currently at 6.6 dropped from 13.3. His e lectrolytes are normal. He is viral screen came back negative. Legionella urine antigen came back negative. Liver function studies are essentially within normal limits. Blood sugar is slightly elevated. Clinically, he is awake and alert and communicating. He remains on room air oxygen. Overall, feeling better compared to yesterday. On 06/14/2024, the patient's condition is stable. No significant cough. He is stating that he has brought up some mild amount of sputum. He remains on a comb ination of Rocephin and Zithromax. The white cell count is currently down to 6.6. Electrolytes are stable. BUN is 33 mg and 1.5. Noted, I performed a CAT scan on this patient yesterday. CAT scan showed a masslike consolidation measuring 5 x 3.7 cm in size in the left lower lobe. There is also a small left-sided pleural effusion that has developed. Obviously, this was reported as a mass. I do appreciate some air bronchograms within this area of consolidation. Possibility of pneumonia cannot be completely excluded. Patient was made aware. Will continue to follow. Continue antibiotics. Bronchoscopy and biopsy of the consolidating mass in the left lower lobe if no change. On 06/15/2024, the patient is being seen for a follow-up. The patient is doing well. No specific complaints. This afternoon, I performed a thoracentesis on the patient's left lung. I was able to aspirate a total of 500 cc of pleural fluid and aspiration was done successfully without any complications. Nev ertheless, the follow-up chest x-ray shows a persistent left midlung lung mass which remains essentially unchanged. The patient is still on IV Rocephin. Remains above evaluated. Remains on steroids. The white cell count is at 18.9 with a hemoglobin 11.4 and a platelet count of 266. BUN is 47 with a creatinine 1.34. Sodium is at 134 with a potassium level of 4.7. Procalcitonin level is at 0.3. Pleural fluid analysis showed an LDH level of 2 1 and a total protein of 2.4. Based on the protein analysis, the patient has a transudate. 06/16/2024, the patient is feeling well. No specific complaints. Noted I performed a left-sided thoracentesis and the patient and I removed approximately 5 cc of pleural fluid from the left lung. The pleural fluid was a transudate based on the protein criteria. LDH was slightly elevated. Awaiting final cytology. However, the chest x-ray that was done following the thoracentesis still showing a masslike opacity in the left midlung. This needs to be followed up on outpatient basis. There was a decrease in the left-sided pleural effusion and there was some residual atelectatic changes in the left midlung. Obviously, the left lung masslike consolidation could be post pneumonia versus malignancy. White cell count is 18.9, hemoglobin 11 and a platelet count of 266 from yesterday. Creatinine is at 1.4. The patient remains on room air oxygen. No significant cough or sputum production. No pleurisy or hemoptysis. The plan is to discharge patient home today on a course of Ceftin and prednisone burst taper to be followed up in the pulmonary clinic by his grants analyst. Objective - Vital Signs Vital signs: Vital Signs Temp 98 F 06/16/24 13:54 Pulse 70 06/16/24 13:54 Resp 19 06/16/24 13:54 BP 130/78 06/16/24 13:54 Pulse Ox 95 06/16/24 13:54 FiO2 Intake & Output 06/15/24 06/16/24 06/16/24 18:59 06:59 18:59 Intake Total 500 240 Balance 500 240 Intake: Oral 500 240 Other: Voiding Method Toilet Toilet # Voids 3 2 - Exam The patient appeared well nourished and normally developed. Vital signs as documented. Head exam is unremarkable. No scleral icterus or corneal arcus noted. Neck is without jugular venous distension, thyromegaly, or carotid bruits. Carotid upstrokes are brisk bilaterally. Lungs are clear to auscultation and percussion. Cardiac exam reveals the PMI to be normally sized and situated. Rhythm is regular. First and second heart sounds normal. No murmurs, rubs or gallops. Abdominal exam reveals normal bowel sounds, no masses, no organomegaly and no aortic enlargement. Extremities are nonedematous and both femoral and pedal pulses are normal. Examination of the skin revealed no evidence of significant rashes, suspicious appearing nevi or other concerning lesions. Neurologically, the patient is awake and alert and the patient does not have any focal neurological deficit. Cranial nerves are essentially intact. - Labs CBC & Chem 7: 06/15/24 04:48 06/15/24 04:48 Labs: Abnormal Lab Results - Last 24 Hours (Table) 06/15/24 Range/Units 00:00 Fluid Appearance Hazy A (Clear) Microbiology - Last 24 Hours (Table) 06/15/24 00:00 Gram Stain - Preliminary Pleural Fluid Body Fluid Culture - Preliminary 06/12/24 14:35 Blood Culture - Preliminary Blood Assessment and Plan Plan: Left lung pneumonia with a masslike consolidation involving the left upper lobe and a small left-sided pleural effusion. Patient was treated for few days on outpatient basis with Levaquin. Treatment was started on 06/08/2024. The patient's condition decompensated and he presented to the Emergency Department with worsening shortness of breath. Chest x-ray showed worsening in the left jennifer ng pneumonia/consolidation. Accordingly, the patient was hospitalized for IV antibiotics. Currently on a combination of IV Rocephin. Clinically stable. CAT scan of the chest showed a consolidating mass in the left lower lobe. Limited air bronchograms. This could be a pneumonia representing is a consolidating mass versus a true tumor. There is also a small left-sided pleural effusion. Thoracentesis of the left lung was done and a total of 500 cc of pleural fluid was aspirated. Likely a transudate based on the protein criteria. LDH however is slightly elevated. Awaiting pleural fluid cytology no pneumothorax postthoracentesis. Nevertheless, there is a persistent left midlung masslike consolidation. Possibility of pneumonia versus malignancy. Acute leukocytosis, improving Shortness of breath acute on chronic, improving COPD with a baseline FEV1 of 64% predicted maintained on Trelegy Ellipta on outpatient basis Renal mass, right-sided, measuring 5.0 cm in size, concerning for renal cell carcinoma Acute kidney injury versus chronic kidney disease Coronary artery disease, previous coronary intervention and stenting Hypertension Hyperlipidemia Chronic diastolic heart failure Diverticulosis Degenerative arthritis Plan Chest x-ray findings is unchanged regarding the left midlung masslike consolidation. Rule out malignancy. The patient is currently on room air oxygen CAT scan of the chest was noted The patient to be discharged home on a course of Ceftin and a prednisone burst taper to be followed up on outpatient basis If the follow-up outpatient chest x-ray findings remains unchanged, the patient will need a bronchoscopy and a biopsy in the future. Will be awaiting pleural fluid cytology DuoNeb nebulizers [id number] Symbicort 2 puffs twice a day Prednisone burst taper at time of discharge Follow-up with pulmonology. Thank
== END 2024-06-16 14:32 | disposition home or self-care (01) | DRG 190 ==
LOC: EC 14:13 → 4SSUR 15:16
PROVIDERS: ADMIT Student in an Organized Health Care Education/Training Program; ATTEND Student in an Organized Health Care Education/Training Program
PROC: 0W9B3ZZ Drainage of Left Pleural Cavity, Percutaneous Approach (ICD-10-PCS; principal; 2024-06-15)
DX: J43.9 Emphysema, unspecified (principal); J18.9 Pneumonia, unspecified organism; I13.0 Hypertensive heart and chronic kidney disease with heart failure and stage 1 through stage 4 chronic kidney disease, or unspecified chronic kidney disease; J90 Pleural effusion, not elsewhere classified; N17.9 Acute kidney failure, unspecified; D63.1 Anemia in chronic kidney disease; J44.0 Chronic obstructive pulmonary disease with (acute) lower respiratory infection; N18.9 Chronic kidney disease, unspecified; I50.32 Chronic diastolic (congestive) heart failure; J44.1 Chronic obstructive pulmonary disease with (acute) exacerbation; Z95.5 Presence of coronary angioplasty implant and graft; I25.10 Atherosclerotic heart disease of native coronary artery without angina pectoris; M25.552 Pain in left hip; G89.29 Other chronic pain; E78.5 Hyperlipidemia, unspecified; H26.9 Unspecified cataract; Z79.82 Long term (current) use of aspirin; Z87.891 Personal history of nicotine dependence; K57.90 Diverticulosis of intestine, part unspecified, without perforation or abscess without bleeding; M19.90 Unspecified osteoarthritis, unspecified site; I25.2 Old myocardial infarction; Z79.51 Long term (current) use of inhaled steroids; Z79.899 Other long term (current) drug therapy
CPT/HCPCS: 36415; 71045; 71046; 71250; 76604; 80048; 80053; 81001; 82945; 83605; 83615; 83735; 84145; 84157; 85025; 85027; 85610; 85730; 87040; 87070; 87075; 87205; 87449; 87636; 88108; 88305; 89050; 93005; 94640; 94760; 96361; 96365; 96367; 96375; 99285

== ENCOUNTER → 2024-06-27 | Outpatient (CLI) | payer MEDICARE, BC ==
[2024-06-27 10:08] LABS: African American GFR (CKD) 75 (>60 ml/min/1.73 sqM); Blood Urea Nitrogen 20 mg/dL (9-20); Non-African American GFR(CKD) 65 (>60 ml/min/1.73 sqM)
--- NOTE | 2024-06-27 14:22 | CT ---
EXAMINATION TYPE: CT ChestAbdPelvis wo/w con CT DLP: 1901 mGycm, Automated exposure control for dose reduction was used. DATE OF EXAM: 06/27/2024 11:52 AM COMPARISON: CT chest 06/13/2024, CT abdomen 02/09/2024, CT chest 01/27/2024, 09/10/2023, 09/19/2019 CLINICAL INDICATION:Male, 83 years old with history of C64.1 MALIGNANT NEOPLASM OF RIGHT KIDNEY, EXCE PT R; PHH, right kidney removed 03/30/24 Technique: Multiple axial images of the chest, abdomen, and pelvis were obtained before and after the uneventful administration of 80 mL of Isovue-300 intravenously. Oral contrast was administered. Two- dimensional coronal and sagittal reconstructions were obtained. Findings: CHEST: LUNGS/ PLEURA: No pneumothorax. Moderate to severe centrilobular emphysematous changes. Minimal biapi clive pleural-parenchymal scarring. Stable right lower lobe 4.8 mm pulmonary nodule abutting the major fissure (series 4, image 38). Stable right upper lobe 3.3 mm pulmonary nodule (series 4, image 20). S table posterior right upper lobe 4.8 mm calcified granuloma. Stable right apical 4.3 mm groundglass n odule (series 4, image 10). Moderate size left pleural effusion redemonstrated. Linear scarring or at electasis within the left lower lobe. Decreased size of spiculated left lower lobe pulmonary mass shruti suring 3.1 x 2.7 cm (series 3, image 26). Previously measured 4.9 x 3.7 cm. AIRWAY: Patent and unremarkable.. HEART: Size within normal limits. . Small pericardial effusion. Moderate coronary artery calcificatio ns present. MEDIASTINUM: No gross evidence of adenopathy. VASCULATURE: No aortic aneurysm. Atherosclerotic calcification of the aorta and its branches. MUSCULOSKELETAL: No acute osseous abnormalities. No aggressive osseous lesion. Mild multilevel degene rative disc disease. SOFT TISSUES/LYMPH NODES: Unremarkable. LOWER NECK: Subcentimeter hypodense right thyroid lobe nodule. ABDOMEN: ABDOMEN LIVER: Unremarkable GALLBLADDER AND BILE DUCTS: Unremarkable. PANCREAS: Unremarkable. SPLEEN: Scattered calcified granulomas. ADRENAL GLANDS: Unremarkable. KIDNEYS AND URETERS: Right kidney is surgically absent. No suspicious soft tissue within the surgical bed. Trace fluid in the surgical bed. No left hydronephrosis. Prominent left extrarenal pelvis redem onstrated. Subcentimeter stable left renal cortical cyst. PELVIS BLADDER: Moderately distended. REPRODUCTIVE: Coarse calcifications of the prostate gland are identified. Enlarged prostate gland shruti suring 5.3 cm in transverse dimension. ABDOMEN & PELVIS STOMACH AND BOWEL: Small hiatal hernia, duodenum is unremarkable. Sigmoid colonic diverticulosis with out evidence for acute diverticulitis. Enteric contrast reaches the hepatic flexure. Mild to moderate amount of stool present within the colon. The appendix is within normal limits. No focal bowel wall thickening or surrounding inflammatory changes. No evidence of bowel obstruction. PERITONEUM: No evidence of pneumoperitoneum or free fluid. VASCULATURE: Moderate atherosclerotic calcifications are present throughout the abdominal aorta and i ts branches. No abdominal aortic aneurysm. MUSCULOSKELETAL: No acute osseous abnormalities. No aggressive osseous lesion. Mild multilevel degene rative disc disease. Bilateral SI joint degenerative changes. Osteoarthritic changes of both hips. LYMPH NODES: No evidence for lymphadenopathy. SOFT TISSUE/ABDOMINAL WALL: Postsurgical changes of the midline anterior wall. IMPRESSION: 1. Postsurgical changes from right nephrectomy. No suspicious soft tissue density within the surgica l bed to suggest local recurrence. 2. Decreased size of left lower lobe pulmonary mass from prior CT suggesting positive response to th erapy. Few stable nonspecific pulmonary nodules from prior CT. 3. No evidence for adenopathy within the chest, abdomen or pelvis. 4. Similar moderate size left pleural effusion. 5. Colonic diverticulosis without evidence for acute diverticulitis. 6. Moderate to severe emphysematous changes. [facility], , 06/27/2024 2:19 PM
== END | disposition home or self-care (01) ==
LOC: RADCTMAIN 08:52
PROVIDERS: ATTEND Urology
DX: C64.1 Malignant neoplasm of right kidney, except renal pelvis (principal); J90 Pleural effusion, not elsewhere classified; K57.30 Diverticulosis of large intestine without perforation or abscess without bleeding; Z90.5 Acquired absence of kidney
CPT/HCPCS: 82565; 84520; 71270; 74178; Q9967

== ENCOUNTER 2024-09-04 16:16 | Emergency (ER) | payer MEDICARE, BC ==
[2024-09-04 16:23] VITALS: TEMP 97.9
--- NOTE | 2024-09-04 16:37 | ED ---
Chest Pain HPI - General Source: patient, RN notes reviewed Mode of arrival: ambulatory Limitations: no limitations <Ciara Vo - Last Filed: 09/04/24 16:39> - General Source: patient, RN notes reviewed, old records reviewed Mode of arrival: ambulatory Limitations: no limitations - History of Present Illness MD Complaint: chest pain, other (Hemoptysis resolved) -: hour(s) Onset: during rest Pain Location: substernal Pain Radiation: none Severity: moderate Severity scale (1-10): 4 Improves With: nothing Worsens With: nothing Anginal Symptoms: sense of impending doom Other Symptoms: palpitations Treatments Prior to Arrival: none <Ramirez Chauhan - Last Filed: 09/04/24 23:55> - General Chief Complaint: Chest Pain Stated Complaint: chest pain Time Seen by Provider: 09/04/24 16:30 - History of Present Illness Initial Comments: [id number] male presenting to emergency department complaints of intermittent left-sided chest pain over the past 3 to 4 days. He states that the pain is nonradiating and does not endorse associated nausea, vomiting, diaphoresis. States he is concerned that he is the coughed up blood this morning. Denies history of DVT or PE. Denies blood thinner use. History of cardiac stent placement. (Ciara Vo) This is a 83-year-old male to the ER for evaluation of chest pain cough cough with hemoptysis. No blood thinners. No shortness of breath currently. Symptoms are improving since initial evaluation here in the ER (Ramirez Chauhan) - Related Data Home Medications Medication Instructions Recorded Confirmed Atorvastatin [Lipitor] 40 mg PO HS 01/29/15 06/12/24 Metoprolol Tartrate [Lopressor] 25 mg PO DAILY 01/29/15 06/12/24 Timolol [Betimol 0.5% Ophth Soln] 1 drop BOTH EYES DAILY 01/29/15 06/12/24 allopurinoL [Zyloprim] 300 mg PO DAILY 01/29/15 06/12/24 amLODIPine [Norvasc] 5 mg PO DAILY 01/29/15 06/12/24 lisinopriL [Zestril] 20 mg PO DAILY 01/29/15 06/12/24 Aspirin [Adult Low Dose Aspirin EC] 81 mg PO DAILY 06/04/20 06/12/24 Fluticasone/Umeclidin/Vilanter 1 puff INHALATION RT-DAILY 03/23/24 06/12/24 [Trelegy Ellipta 100-62.5-25] Previous Rx's Medication Instructions Recorded Acetaminophen Tab [Tylenol] 650 mg PO Q4HR PRN tab 06/16/24 Albuterol Inhaler [Ventolin Hfa 2 puff INHALATION Q6H PRN #1 each 06/16/24 Inhaler] Pantoprazole [Protonix] 40 mg PO AC-BRKFST #30 tab 06/16/24 cefuroxime axetiL [Ceftin] 500 mg PO BID #20 tab 06/16/24 predniSONE See Taper PO DIRECTED #18 tab 06/16/24 Allergies Allergy/AdvReac Type Severity Reaction Status Date / Time No Known Allergies Allergy Verified 09/04/24 16:23 Review of Systems ROS Other: All systems not noted in ROS Statement are negative. <Ciara Vo - Last Filed: 09/04/24 16:39> ROS Other: All systems not noted in ROS Statement are negative. <Ramirez Chauhan - Last Filed: 09/04/24 23:55> ROS Statement: Those systems with pertinent positive or pertinent negative responses have been documented in the HPI. EKG Findings - EKG Comments: EKG Findings:: EKG is sinus is 65 GA 132 QRS 95 QTc 410 - EKG Results: EKG: interpreted by ERMD <Ramirez Chauhan - Last Filed: 09/04/24 23:55> Past Medical History Past Medical History: Coronary Artery Disease (CAD), COPD, GERD/Reflux, Hyperlipidemia, Hypertension, Myocardial Infarction (VA), Osteoarthritis (OA), Pneumonia, Syncope Additional Past Medical History / Comment(s): mi x2, lt ear tinnitus, "touch of emphysema", chronic lt hip pain, diverticulosis, change in bowel habits, Last Myocardial Infarction Date:: 01-05-95 History of Any Multi-Drug Resistant Organisms: None Reported Past Surgical History: Adenoidectomy, Heart Catheterization, Heart Catheterization With Stent, Orthopedic Surgery, Tonsillectomy Additional Past Surgical History / Comment(s): regina cataracts removed, lt thumb sx to reconnect tendon. 4 heart caths mult sents Past Anesthesia/Blood Transfusion Reactions: No Reported Reaction Additional Past Anesthesia/Blood Transfusion Reaction / Comment(s): No hx of blood transfusion to date. Date of Last Stent Placement:: 01/08/2007 Past Psychological History: No Psychological Hx Reported Smoking Status: Former smoker Past Alcohol Use History: None Reported Past Drug Use History: None Reported - Past Family History Mother Additional Family Medical History / Comment(s): of complications of post op infection after bowel sx Son(s) Family Medical History: Cancer Additional Family Medical History / Comment(s): Pancreatic cancer. <Ciara Vo - Last Filed: 09/04/24 16:39> General Exam Limitations: no limitations <Ciara Vo - Last Filed: 09/04/24 16:39> General appearance: alert, in no apparent distress Head exam: Present: atraumatic, normocephalic, normal inspection Eye exam: Present: normal appearance, PERRL, EOMI. Absent: scleral icterus, conjunctival injection, periorbital swelling ENT exam: Present: normal exam, mucous membranes moist Neck exam: Present: normal inspection. Absent: tenderness, meningismus, lymphadenopathy Respiratory exam: Present: normal lung sounds bilaterally. Absent: respiratory distress, wheezes, rales, rhonchi, stridor Cardiovascular Exam: Present: regular rate, normal rhythm, normal heart sounds. Absent: systolic murmur, diastolic murmur, rubs, gallop, clicks GI/Abdominal exam: Present: soft, normal bowel sounds. Absent: distended, tenderness, guarding, rebound, rigid Extremities exam: Present: normal inspection, full ROM, normal capillary refill. Absent: tenderness, pedal edema, joint swelling, calf tenderness Back exam: Present: normal inspection Neurological exam: Present: alert, oriented X3, CN II-XII intact Psychiatric exam: Present: normal affect, normal mood Skin exam: Present: warm, dry, intact, normal color. Absent: rash <Ramirez Chauhan - Last Filed: 09/04/24 23:55> - General Exam Comments Initial Comments: Visual Physical Exam Vital signs reviewed General: Well-appearing, nontoxic, no acute distress. Head: Normocephalic, atraumatic Eyes: PERRLA, EOMI ENT: Airway patent Chest: Nonlabored breathing Skin: No visual rash, normal skin tone Neuro: Alert and oriented 3 Musculoskeletal: No gross abnormalities (Stieler,Ciara) Course <Ramirez Chauhan - Last Filed: 09/04/24 23:55> Vital Signs 09/04/24 09/04/24 16:19 22:43 Temperature 97.9 F Pulse Rate 72 80 Respiratory 20 18 Rate Blood Pressure 143/62 145/82 O2 Sat by Pulse 95 95 Oximetry - Reevaluation(s) Reevaluation #1: 09/04/24 23:54 Medical records reviewed (Ramirez Chauhan) Reevaluation #2: 09/04/24 23:54 No shortness of breath no chest pain no hemoptysis (Ramirez Chauhan) Reevaluation #3: 09/04/24 23:54 Patient informed of results questions answered (Ramirez Chauhan) Reevaluation #4: Was pt. sent in by a medical professional or institution (, PA, CIS COORDINATOR, urgent care, hospital, or [facility]...) When possible be specific @ -no Did you speak to anyone other than the patient for history (EMS, parent, family, police, friend...)? What history was obtained from this source @ -no Did you review nursing and triage notes (agree or disagree)? Why? @ -agree Are old charts reviewed (outside hosp., previous admission, EMS record, old EKG, old radiological studies, urgent care reports/EKG's, [facility] records)? Report findings @ -yes Differential Diagnosis (chest pain, altered mental status, abdominal pain women, abdominal pain men, vaginal bleeding, weakness, fever, dyspnea, syncope, headache, dizziness, GI bleed, back pain, seizure, CVA, palpatations, mental health, musculoskeletal)? @ -prior EKG interpreted by me (3pts min.). @ -yes X-rays interpreted by me (1pt min.). @ -yes negative for acute disease CT interpreted by me (1pt min.). @ -no U/S interpreted by me (1pt. min.). @ -no What testing was considered but not performed or refused? (CT, X-rays, U/S, labs)? Why? @ -none What meds were considered but not given or refused? Why? @ -none Did you discuss the management of the patient with other professionals (professionals i.e. , PA, CIS COORDINATOR, lab, RT, psych nurse, outreach and education social worker, manager of allied health services, teacher, naval gunfire liaison officer, pillowcase cleaner)? Give summary @ -no Was smoking cessation discussed for >3mins.? @ -no Was critical care preformed (if so, how long)? @ -no Were there social determinants of health that impacted care today? How? (Homelessness, low income, unemployed, alcoholism, drug addiction, transportation, low edu. Level, literacy, decrease access to med. care, prison, rehab)? @ -none Was there de-escalation of care discussed even if they declined (Discuss DNR or withdrawal of care, Hospice)? DNR status @ -no What co-morbidities impacted this encounter? (DM, HTN, Smoking, COPD, CAD, Cancer, CVA, ARF, Chemo, Hep., AIDS, mental health diagnosis, sleep apnea, morbid obesity)? @ -none Was patient admitted / discharged? Hospital course, mention meds given and route, prescriptions, significant lab abnormalities, going to OR and other pertinent info. @ - Undiagnosed new problem with uncertain prognosis? @ -no Drug Therapy requiring intensive monitoring for toxicity (Heparin, Nitro, Insulin, Cardizem)? @ -no Were any procedures done? @ -no Diagnosis/symptom? @ - Acute, or Chronic, or Acute on Chronic? @ -Acute Uncomplicated (without systemic symptoms) or Complicated (systemic symptoms)? @ -Complicated Side effects of treatment? @ -no Exacerbation, Progression, or Severe Exacerbation? @ -exacerbation Poses a threat to life or bodily function? How? (Chest pain, [place], [place], pneumonia, PE, COPD, DKA, ARF, appy, cholecystitis, CVA, Diverticulitis, Homicidal, Suicidal, threat to staff... and all critical care pts) @ -yes (Ramirez Chauhan) Reevaluation #5: Differential Dyspnea: Coronary syndrome, arrhythmia, tamponade, asthma, COPD, pulmonary embolism, pneumonia, pneumothorax, pulmonary effusion, anaphylaxis, diabetic ketoacidosis, flailed chest, pulmonary contusion, diaphragmatic rupture, anemia, neuromuscular, this is not meant to be an all-inclusive list. Differential Chest Pain: Stable Angina, Unstable Angina, STEMI, NSTEMI Aortic Dissection, Pneumothorax, Musculoskeletal, Esophageal Spasm GERD, Cholecystitis, Pancreatitis, Zoster, this is not meant to be an all-inclusive list. (Ramirez Chauhan) Chest Pain MDM <Ciara Vo - Last Filed: 09/04/24 16:39> <Ramirez Chauhan - Last Filed: 09/04/24 23:55> - MDM I completed the quick note portion of this chart signed Ciara Vo PA-C (Ciara Vo) 83 male chief complaint of mopped assist occasional chest pain both symptoms resolved patient had normal CT scanning normal x-ray normal lab testing with decreasing troponin. Patient can be discharged home (Ramirez Chauhan) Disposition <Ciara Vo - Last Filed: 09/04/24 16:39> Is patient prescribed a controlled substance at d/c from ED?: No Time of Disposition: 22:20 <Ramirez Chauhan - Last Filed: 09/04/24 23:55> Clinical Impression: Chest pain, Hemoptysis Disposition: HOME SELF-CARE Condition: Good Instructions (If sedation given, give patient instructions): Coughing Up Blood (Hemoptysis) (ED) Referrals: Jr Lopez MD [STAFF PHYSICIAN] - 1-2 days
[2024-09-04 16:44] LABS: Basophils # (A) 0.03 10*3/uL (0.00-0.10); Basophils % (A) 0.3 %; Eosinophils # (A) 0.12 10*3/uL (0.04-0.35); Eosinophils % (A) 1.1 %; HCT 36.7 % (39.6-50.0); HGB 12.4 g/dL (13.0-17.0); Lymphocytes # (A) 0.64 10*3/uL (0.90-5.00); Lymphocytes % (A) 5.8 %; MCH 32.7 pg (27.0-32.0); MCHC 33.8 g/dL (32.0-37.0); MCV 96.8 fL (80.0-97.0); Mean Platelet Volume 10.4 fL (9.5-12.2); Monocytes # (A) 0.96 10*3/uL (0.20-1.00); Monocytes % (A) 8.8 %; Neutrophils # (A) 9.16 10*3/uL (1.80-7.70); Neutrophils % (A) 83.5 %; Platelet Count 162 10*3/uL (140-440); RBC 3.79 10*6/uL (4.40-5.60); WBC 10.96 10*3/uL (4.50-10.00)
[2024-09-04 17:02] LABS: Partial Thromboplastin Time 24.6 sec (22.0-30.0)
[2024-09-04 17:07] LABS: ALT 19 U/L (4-49); AST 28 U/L (17-59); African American GFR (CKD) 53 (>60 ml/min/1.73 sqM); Albumin 3.5 g/dL (3.5-5.0); Alkaline Phosphatase 71 U/L (38-126); Anion Gap 8 mmol/L; Blood Urea Nitrogen 32 mg/dL (9-20); Calcium 8.9 mg/dL (8.4-10.2); Carbon Dioxide 25 mmol/L (22-30); Chloride 104 mmol/L (98-107); Glucose 89 mg/dL (74-99); Magnesium 1.9 mg/dL (1.6-2.3); Non-African American GFR(CKD) 46 (>60 ml/min/1.73 sqM); Potassium 4.1 mmol/L (3.5-5.1); Sodium 137 mmol/L (137-145); Total Bilirubin 1.4 mg/dL (0.2-1.3); Total Protein 5.8 g/dL (6.3-8.2)
--- NOTE | 2024-09-04 17:27 | XR ---
EXAMINATION TYPE: XR chest 2V DATE OF EXAM: 09/04/2024 4:52 PM COMPARISON: 06/15/2024 , 06/30/2024 CLINICAL INDICATION: Male, 83 years old with history of Chest Pain, TECHNIQUE: XR chest 2V view(s) obtained. FINDINGS: The heart size is normal. The pulmonary vasculature is prominent. This appears greater on the left than the right. Increased left perihilar infiltrate is present. Left lower lobe infiltrate is present. Minimal left p leural effusion is present. Some mild right lower lobe infiltrate may be present. IMPRESSION: 1. Increased lung markings in the left perihilar region. Previous consolidation is not identified. Co ntinued follow-up is recommended. 2. Left lower lobe infiltrate and effusion appear diminished from comparison. [facility], , 09/04/2024 5:25 PM
--- NOTE | 2024-09-04 18:46 | CT ---
EXAMINATION TYPE: CT chest angio for PE DATE OF EXAM: 09/04/2024 6:07 PM COMPARISON: 06/27/2024 CLINICAL INDICATION: Male, 83 years old with history of chest pain, hemoptysis, elevated D-dimer, hem optysis chest pain, TECHNIQUE: CT of the chest is performed on a spiral scan at 2 mm thick sections. Study is performed with intravenous contrast timed for evaluation for pulmonary embolism. This will limit additional po rtions of the evaluation. 10mm MIP images reconstructed by the technologist are reviewed on the comp uter in the coronal and sagittal planes. Contrast used:100 mL of Isovue 370 with IV Contrast, (none if empty) Oral contrast used: (none if empty) CT DLP: 241.1 mGycm, Automated exposure control for dose reduction was used. FINDINGS: No persistent filling defects are evident to suggest an acute pulmonary embolism. No mediastinal or hilar adenopathy enlarged by CT criteria is evident. The ascending aorta diameter at the level of the main pulmonary artery is 2.9 cm. The main pulmonary artery diameter at the bifurcation is 2.8 cm. There is a small left pleural effusion. There is a left lower lobe and lingular infiltrate present. S ome left suprahilar soft tissue thickening appears to be present. Underlying1 mass should be consider ed. No enlarged mediastinal adenopathy is evident. There are several small lymph nodes. Moderate coronary artery calcifications present. Limited CT sections were through the upper abdomen. Upper abdomen appears unremarkable. IMPRESSION: 1. No acute pulmonary embolism. 2. Soft tissue density left suprahilar region. This is increasing from comparison. Previous spiculate d mass within the left mid lung however is not well visualized. 3. Small left pleural effusion [facility], , 09/04/2024 6:44 PM
[2024-09-04 22:45] VITALS: BP 145/82; PULSE 80; RESP 18
== END 2024-09-04 22:45 | disposition home or self-care (01) ==
LOC: EC 16:16
DX: R04.2 Hemoptysis (principal); Z87.891 Personal history of nicotine dependence
CPT/HCPCS: 36415; 93005; 85379; 80053; 83735; 84484; 85025; 85610; 85730; 71046; 71275; 99285; Q9967

== ENCOUNTER → 2024-09-29 | Outpatient (CLI) | payer MEDICARE, BC ==
--- NOTE | 2024-09-29 14:20 | PE ---
EXAMINATION TYPE: PET CT fusion skull to thigh DATE OF EXAM: 09/29/2024 CLINICAL INDICATION:Male, 83 years old with history of R91.8 MULTIPLE LUNG NODULES; TECHNIQUE: Following the intravenous administration of 10.71 mCi of F-18 FDG, whole body images are performed from the skull base to the Mid thigh. Images are reviewed on the computer in the coronal, axial, and sagittal planes. Reconstructed rotating images are created on independent workstation an d reviewed on the computer. A non-contrast CT is performed in conjunction with the PET scan. Glucos e level 82 mg/dL CT DLP: 494 mGycm, Automated exposure control for dose reduction was used. COMPARISON: CT 06/27/2024, 09/01/2024, PET/CT None, MRI: None FINDINGS: Mediastinal SUV mean is 2.. Hepatic parenchyma SUV mean is 2.5. SKULL BASE AND NECK: No suspicious radiotracer activity. CHEST, MEDIASTINUM, AND HILAR REGION: Suspicious uptake identified; examples include: * Right middle lobe consolidation max SUV measuring 5.6 measuring 35 x 26 mm. * Consolidation changes in the left lung base seen on 08/27/2024 and subsequently improved on 09/05/19 25 is improved on today's exam. Left suprahilar soft tissue opacity is also improved. * Focus of uptake in the left lower quadrant max SUV 3.9 in the area of prior consolidation measurin g 14 x 8 mm ABDOMEN AND PELVIS: Soft tissue uptake in the anterior subcutaneous tissues along the surgical margin max SUV 2.6. MUSCULOSKELETAL STRUCTURES: No suspicious radiotracer activity. OTHER CT: Atherosclerosis of the intracranial vasculature. Bilateral aphakia. Severe coronary artery atherosclerosis. Calcified granulomas in the spleen. The right kidney is surgically absent. Scattered colonic diverticula. Prostatomegaly. Trace left pleural effusion has decreased in size. IMPRESSION: 1. Waxing waning consolidation changes in the lungs possibly due to an infectious/inflammatory. 2. Left lower lobe pulmonary nodule near the diaphragm measuring up to 14 mm and right middle lobe m easuring up to 34 mm possibly related to infectious/inflammatory process. Continued short-term follow -up surveillance CT imaging recommended in 3 months. 3. 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 No definitive evidence fo r local recurrence. 4. Uptake along the anterior abdominal subcutaneous tissues possibly postsurgical. Soft tissue depos its are not excluded at this time. Continued surveillance recommended [facility], , 09/29/2024 2:17 PM
== END | disposition home or self-care (01) ==
LOC: RADPETMAIN 12:22
PROVIDERS: ATTEND Internal Medicine
DX: R91.8 Other nonspecific abnormal finding of lung field (principal); Z90.5 Acquired absence of kidney
CPT/HCPCS: 78815; A9552